=== PATIENT | female | born 1965 | race Caucasian/White ===

== ENCOUNTER 2018-08-04 23:29 | Inpatient (IN) ==
[2018-08-05] MEDS ORDERED: Sod Chloride 0.9% Inj 1,000 ML IV.SIG ONE ×2 (01:00→02:38)
--- NOTE | 2018-08-05 01:31 | XR ---
EXAM DATE: 08/05/2018 1:19 AM EST AGE/SEX: 52 years / Female INDICATIONS: Lower abdominal pain, free air. CLINICAL DATA: This is the patient's initial encounter. Patient reports that signs and symptoms have been present for 1 day and indicates a pain score of 5/10. MEDICAL/SURGICAL HISTORY: None. None. COMPARISON: No prior exams available for comparison. FINDINGS: A single AP view of the chest demonstrates the lungs to be symmetrically aerated without evidence of mass, infiltrate or effusion. The cardiomediastinal contours are unremarkable. Air below the left he midiaphragm is felt to be within the gastric fundus. Osseous structures are intact. CONCLUSION: The lungs are clear. Electronically signed by: Kentrell Breaux MD Board Certified Radiologist 08/05/2018 1:30 AM EST
[2018-08-05] MEDS ORDERED: Pantoprazole Inj 40 MG Vial IV.PUSH ONE (01:48)
[2018-08-05 01:51] LABS: Baso # (Auto) 0.1 th/mm3 (0.0-0.2); Baso % (Auto) 0.3 % (0.0-2.0); Eos % (Auto) 0.1 % (0.0-4.0); Hemoglobin 13.4 gm/dL (11.6-15.3); Lymph # (Auto) 0.4 th/mm3 (1.0-4.8); Lymph % (Auto) 2.7 % (9.0-44.0); Mean Corpuscular HGB Conc 32.8 % (32.0-36.0); Mean Corpuscular Hemoglobin 30.5 pg (27.0-34.0); Mean Platelet Volume 9.4 fL (7.0-11.0); Mono # (Auto) 0.9 th/mm3 (0.0-0.9); Mono % (Auto) 5.3 % (0.0-8.0); Neut # (Auto) 15.4 th/mm3 (1.8-7.7); Neut % (Auto) 91.6 % (16.0-70.0); Platelet Count 227 th/mm3 (150-450); Red Blood Count 4.41 mil/mm3 (4.00-5.30); Red Cell Distribution Width 12.4 % (11.6-17.2); White Blood Count 16.8 th/mm3 (4.0-11.0)
[2018-08-05 01:55] LABS: Alanine Aminotransferase 22 U/L (10-53); Anion Gap 9 meq/L (5-15); Aspartate Aminotransferase 23 U/L (15-37); Blood Urea Nitrogen 23 mg/dL (7-18); Calcium 9.5 mg/dL (8.5-10.1); Carbon Dioxide 23.9 meq/L (21.0-32.0); Chloride 105 meq/L (98-107); Glomerular Filtration Rate 80 mL/min (>89); Glucose,Random 146 mg/dL (74-106); Lipase 132 U/L (73-393); Magnesium 1.7 mg/dL (1.5-2.5); Potassium 3.8 meq/L (3.5-5.1); Sodium 138 meq/L (136-145)
[2018-08-05 01:58] LABS: Alkaline Phosphatase 99 U/L (45-117); Total Protein 7.3 g/dL (6.4-8.2)
[2018-08-05 02:00] LABS: Creatine Kinase 82 U/L (26-192)
[2018-08-05 02:04] LABS: Activated Partial Thrombo Time 20.8 sec (23.4-31.7); Prothrombin Time 10.3 sec (9.8-11.6)
[2018-08-05] MEDS ORDERED: Morphine Inj 4 MG/ML Vial IV.PUSH ONE (02:38)
[2018-08-05 02:47] LABS: Bilirubin,Urine Negative (Negative); Clarity,Urine Clear (Clear); Color,Urine Amber (Yellw/Straw); Glucose,Urine (UA) Negative (Negative); Hyaline Casts,Urine 3 /lpf (0-3); Leukocyte Esterase,Urine Small (Negative); Mucus,Urine Few /lpf (Occasional); Nitrite,Urine Negative (Negative); Specific Gravity,Urine 1.018 (1.002-1.035); Squamous Epithelial Cell,Urine <1 /hpf (0-5)
[2018-08-05 02:48] LABS: Urobilinogen,Urine 0.2 mg/dL (Less than 2)
--- NOTE | 2018-08-05 04:04 | CT ---
EXAM DATE: 08/05/2018 3:42 AM EST AGE/SEX: 52 years / Female INDICATIONS: Lower abdominal pain and vomiting. CLINICAL DATA: This is the patient's initial encounter. Patient reports that signs and symptoms have been present for 1 day and indicates a pain score of 8/10. MEDICAL/SURGICAL HISTORY: None. None. ORAL CONTRAST: No oral contrast ingested. RADIATION DOSE: 6.57 CTDI (mGy) COMPARISON: No prior exams available for comparison. TECHNIQUE: Multiple contiguous axial images were obtained through the abdomen and pelvis following b olus infusion of 85 ml Omnipaque 350 (iohexol) nonionic water-soluble contrast as a single exam dos e. No oral contrast ingested. Using automated exposure control and adjustment of the mA and/or kV ac cording to patient size, radiation dose was kept as low as reasonably achievable to obtain optimal di agnostic quality images. DICOM format image data is available electronically for review and comparis on. FINDINGS: Lower Lungs: The visualized lower lungs are clear. Liver: The liver has a homogeneous density without space-occupying lesion. There is no dilation of th e biliary tree. Spleen: Homogeneous density without enlargement. Pancreas: Unremarkable without mass or calcification. Kidneys: Normal in size and shape. No evidence of mass or hydronephrosis. Adrenal Glands: Unremarkable. Aorta: The aorta and proximal iliac vessels are grossly unremarkable without aneurysmal dilation. Bowel/Mesentery: Circumferential wall thickening and mild stranding of the adjacent fat involving th e colon. This extends from the mid transverse colon through the rectosigmoid colon. There is a small volume of free fluid deep within the pelvis. No dilated loops of bowel observed. No free air. Small b owel and stomach are unremarkable.. Abdominal Wall: Intact. Retroperitoneum: No evidence of adenopathy in the retrocrural, para-aortic, or deep pelvic regions. Bladder: Contours are smooth. Reproductive Organs: No abnormal masses or calcifications seen. Inguinal: The inguinal region is unremarkable without evidence of adenopathy. Bony Structures: Unremarkable. CONCLUSION: 1. Acute inflammatory process extending from the mid transverse colon to the rectosigmoid region. Sm all volume of free fluid. Consider ulcerative colitis. Although the pattern of distribution would be consistent with ischemic colitis the mesenteric vessels are widely patent. Electronically signed by: Kentrell Breaux MD Board Certified Radiologist 08/05/2018 4:02 AM EST
[2018-08-05] MEDS ORDERED: Ciprofloxacin 400 MG/200 ML 400 MG/200 ML PIGGYBACK IV.SIG ONE (04:13)
--- NOTE | 2018-08-05 05:45 | ED ---
HPI General Chief complaint: Abdominal Pain Stated complaint: Abd Pain/Vomitting Time Seen by Provider: 08/05/18 00:59 Source: patient Mode of arrival: ambulatory Limitations: no limitations History of Present Illness HPI narrative: The patient is a 52 year old female who presents to the [facility] emergency department with a history of nausea and abdominal cramping that began around 5 PM. She reports that she then developed nausea and vomiting x2 and diarrhea every 10-30 minutes. She reports that the diarrhea was initially dark brown and then became bloody with mucus. The patient reports that her last meal consisted of tonight. She denies any sick contacts or recent antibiotic use. She reports that in the evening she began to have fevers, chills, and lightheaded sensation. She denies ever having a colonoscopy. The patient reports that the abdominal pain is present in bilateral lower quadrants. She reports that the pain is constant and a cramping sensation with intermittent sharp jabbing pains. On review of systems otherwise, the patient denies having any cough, congestion, neck pain, chest pain, shortness of breath, urinary symptoms, or neurologic symptoms. Related Data Home Medications Medication Instructions Recorded Confirmed No Known Home Medications 08/05/18 08/05/18 Allergies Allergy/AdvReac Type Severity Reaction Status Date / Time No Known Allergies Allergy Verified 08/05/18 00:22 Review of Systems ROS: all other systems reviewed are negative [facility] Medical History Medical History Asthma (Acute) Bleeding disorder (Acute) delivery delivered (Acute) Factor 5 Leiden mutation, heterozygous (Acute) Herniated disc, cervical (Acute) Mitral valve prolapse (Acute) Psoriasis (Acute) Surgical History Surgical History History of facial surgery (Acute) Social History Social History Substance History: No History of Abuse Second Hand Smoke Exposure: No Smoking Status: Never smoker How Often Do You Have a Drink Containing Alcohol: Monthly or less Recent Travel in [facility] within the Last 8 Weeks: No Recent Out of Country Travel within the Last 8 Weeks: No Immunization History Tetanus Immunization: >5 Years Exam Const General: cooperative, well developed and acute distress (Related to lower abdominal pain.) mild HENMT Head: normocephalic and atraumatic Nose: no nasal discharge and no epistaxis Mouth: other (Tacky mucous membranes) Throat: posterior oropharynx normal and uvula midline Eyes Sclera: normal sclerae Pupils: PERRL Neck Neck: no meningeal signs, trachea midline and no JVD Resp Effort & Inspection: no use of accessory muscles Auscultation: clear to auscultation bilaterally Cardio Rate: regular rate Rhythm: regular rhythm Heart Sounds: no murmurs GI Inspection: non-distended Palpation: soft, no hepatosplenomegaly and tender in the epigastrum, in the LLQ , in the RLQ and suprapubicly; not in the LUQ, not in the RUQ, not at McBurney' s point, Thomas's sign negative and with no rebound tenderness Auscultation: normal bowel sounds Back/Spine/Pelvis Back: CVA tenderness (Reported on the left side.) Skin General: dry skin (warm) Neuro General: alert, awake, oriented x3 and other (Grossly nonfocal) Speech: speech normal Motor: no movement abnormalities noted Extrem General: normal to inspection (2+ pulses in all 4 extremities.), no calf tenderness, no clubbing, no cyanosis and no edema Psych Mood: congruent mood Affect: normal affect Judgment: judgment good Course Initial Documented Vital Signs Temperature 97.1 F L 08/05/18 00:22 Pulse Rate 76 08/05/18 00:22 Respiratory Rate 18 08/05/18 00:22 Blood Pressure 106/55 L 08/05/18 00:22 Pulse Oximetry 99 08/05/18 00:22 Last Documented Vital Signs Temperature 97.1 F L 08/05/18 00:22 Pulse Rate 70 08/05/18 01:00 Respiratory Rate 24 08/05/18 00:40 Blood Pressure 119/41 L 08/05/18 00:40 Pulse Oximetry 98 08/05/18 01:00 Medical Decision Making MDM Narrative Medical decision making narrative: During the course of the patient's emergency department visit, the patient's history, examination, and differential diagnosis were reviewed with the patient. The patient was placed on a electronic device monitor with oximetry and frequent blood pressure monitoring. The patient had IV access obtained and blood work sent for analysis. A diagnostic evaluation was started regarding the patient's nausea, vomiting, and bloody diarrhea. The patient was initially provided normal saline 1 L IV fluid bolus, morphine for pain, Zofran for nausea. The patient was started on Protonix 40 mg IV. Stool studies were ordered. The patient provided a stool sample that was grossly positive for blood and mucus. The patient's diagnostic studies are remarkable for a white count of 16.8, hemoglobin 13.4, platelets 227 with a neutrophil predominance of 91.6. PT 10.3 , PTT 20.8. Chemistries remarkable for BUN of 23, GFR of 80, glucose 146, lactic acid is within normal limits at 1.5, cardiac enzymes within normal limits , C-reactive protein less than 0.29, lipase 132. Urinalysis shows small occult blood small leukocyte esterase 9 WBCs 3 RBCs few mucus. C. difficile toxin is negative, chest x-ray shows no acute cardiopulmonary disease, CT scan of the abdomen and pelvis shows acute inflammatory process extending from the mid transverse colon to the rectosigmoid region, small volume of free fluid, consider ulcerative colitis. Although the pattern of distribution would be consistent with ischemic colitis, the mesenteric vessels are widely patent. The patient was started on ciprofloxacin and Flagyl IV. The patient's case including history, pertinent physical examination findings, and laboratory studies were discussed with Dr. Plascencia. It was agreed that the patient would be admitted to the [facility] hospitalist service. The patient's results were discussed with the patient, including the plan of care. I explained that further testing and/ or monitoring is indicated based on the patient's history, examination, and/ or laboratory findings. Therefore, I recommended admission for additional evaluation. The patient expressed understanding and was agreeable with this plan. The patient was admitted to the hospital in guarded condition and sent to a bed under the care of the [facility] hospitalist service. Medical Screen Exam Complete: Yes Emergency Medical Condition: Yes Differential Diagnosis Differential Diagnosis: Colitis, versus diverticulitis, versus AVM malformation , versus bacterial gastroenteritis, versus ischemic bowel Medical Records Medical records reviewed: Yes I reviewed the patient's medical records. Lab Data Lab results reviewed: Yes I reviewed the patient's lab results. Result diagrams: 08/05/18 01:15 08/05/18 01:15 POC Results POC Urine Results Negative Lab Results 08/05/18 08/05/18 08/05/18 Range/Units 01:15 01:15 01:15 WBC 16.8 H (4.0-11.0) th/mm3 RBC 4.41 (4.00-5.30) mil/mm3 Hgb 13.4 (11.6-15.3) gm/dL Hct 41.0 (35.0-46.0) % MCV 93.0 (80.0-100.0) fL MCH 30.5 (27.0-34.0) pg MCHC 32.8 (32.0-36.0) % RDW 12.4 (11.6-17.2) % Plt Count 227 (150-450) th/mm3 MPV 9.4 (7.0-11.0) fL Neut % (Auto) 91.6 H (16.0-70.0) % Lymph % (Auto) 2.7 L (9.0-44.0) % Stanton % (Auto) 5.3 (0.0-8.0) % Eos % (Auto) 0.1 (0.0-4.0) % Baso % (Auto) 0.3 (0.0-2.0) % Neut # (Auto) 15.4 H (1.8-7.7) th/mm3 Lymph # (Auto) 0.4 L (1.0-4.8) th/mm3 Stanton # (Auto) 0.9 (0.0-0.9) th/mm3 Eos # (Auto) 0.0 (0.0-0.4) th/mm3 Baso # (Auto) 0.1 (0.0-0.2) th/mm3 WBC Differential . Differential Comment Auto diff final PT 10.3 (9.8-11.6) sec INR 1.0 Ratio APTT 20.8 L (23.4-31.7) sec Sodium 138 (136-145) meq/L Potassium 3.8 (3.5-5.1) meq/L Chloride 105 (98-107) meq/L Carbon Dioxide 23.9 (21.0-32.0) meq/L Anion Gap 9 (5-15) meq/L BUN 23 H (7-18) mg/dL Creatinine 0.76 (0.50-1.00) mg/dL Estimated GFR 80 L (>89) mL/min Random Glucose 146 H (74-106) mg/dL Lactic Acid (0.4-2.0) mmol/L Calcium 9.5 (8.5-10.1) mg/dL Magnesium 1.7 (1.5-2.5) mg/dL Total Bilirubin 0.6 (0.2-1.0) mg/dL AST 23 (15-37) U/L ALT 22 (10-53) U/L Alkaline Phosphatase 99 (45-117) U/L Total Creatine Kinase 82 (26-192) U/L Troponin I Less than 0.02 L (0.02-0.05) ng/mL C-Reactive Protein Less than 0.29 (0.00-0.30) mg/dL Total Protein 7.3 (6.4-8.2) g/dL Albumin 4.0 (3.4-5.0) g/dL Lipase 132 (73-393) U/L Urine Color (Yellw/Straw) Urine Clarity (Clear) Urine pH (5.0-8.5) Ur Specific [place] (1.002-1.035) Urine Protein (Neg-Trace) mg/dL Urine Glucose (UA) (Negative) mg/dL Urine Ketones (Negative) mg/dL Urine Occult Blood (Negative) Urine Nitrate (Negative) Urine Bilirubin (Negative) Urine Urobilinogen (Less than 2) mg/dL Ur Leukocyte Esterase (Negative) Urine RBC (0-3) /hpf Urine WBC (0-5) /hpf Ur Squamous Epith Cells (0-5) /hpf Hyaline Casts (0-3) /lpf Urine Mucus (Occasional) /lpf Micro UA Comment Ur Microscopic Review Urine Culture Comments Stl C.difficile DNA Amp (Negative) St C. diff Tox Epid 027 (Negative) Blood Type Blood Type Recheck Antibody Screen 08/05/18 08/05/18 08/05/18 Range/Units 01:25 02:15 02:25 WBC (4.0-11.0) th/mm3 RBC (4.00-5.30) mil/mm3 Hgb (11.6-15.3) gm/dL Hct (35.0-46.0) % MCV (80.0-100.0) fL MCH (27.0-34.0) pg MCHC (32.0-36.0) % RDW (11.6-17.2) % Plt Count (150-450) th/mm3 MPV (7.0-11.0) fL Neut % (Auto) (16.0-70.0) % Lymph % (Auto) (9.0-44.0) % Stanton % (Auto) (0.0-8.0) % Eos % (Auto) (0.0-4.0) % Baso % (Auto) (0.0-2.0) % Neut # (Auto) (1.8-7.7) th/mm3 Lymph # (Auto) (1.0-4.8) th/mm3 Stanton # (Auto) (0.0-0.9) th/mm3 Eos # (Auto) (0.0-0.4) th/mm3 Baso # (Auto) (0.0-0.2) th/mm3 WBC Differential Differential Comment PT (9.8-11.6) sec INR Ratio APTT (23.4-31.7) sec Sodium (136-145) meq/L Potassium (3.5-5.1) meq/L Chloride (98-107) meq/L Carbon Dioxide (21.0-32.0) meq/L Anion Gap (5-15) meq/L BUN (7-18) mg/dL Creatinine (0.50-1.00) mg/dL Estimated GFR (>89) mL/min Random Glucose (74-106) mg/dL Lactic Acid 1.5 (0.4-2.0) mmol/L Calcium (8.5-10.1) mg/dL Magnesium (1.5-2.5) mg/dL Total Bilirubin (0.2-1.0) mg/dL AST (15-37) U/L ALT (10-53) U/L Alkaline Phosphatase (45-117) U/L Total Creatine Kinase (26-192) U/L Troponin I (0.02-0.05) ng/mL C-Reactive Protein (0.00-0.30) mg/dL Total Protein (6.4-8.2) g/dL Albumin (3.4-5.0) g/dL Lipase (73-393) U/L Urine Color [place] (Yellw/Straw) Urine Clarity Clear (Clear) Urine pH 5.0 (5.0-8.5) Ur Specific [place] 1.018 (1.002-1.035) Urine Protein Negative (Neg-Trace) mg/dL Urine Glucose (UA) Negative (Negative) mg/dL Urine Ketones 20 (Negative) mg/dL Urine Occult Blood Small H (Negative) Urine Nitrate Negative (Negative) Urine Bilirubin Negative (Negative) Urine Urobilinogen 0.2 (Less than 2) mg/dL Ur Leukocyte Esterase Small H (Negative) Urine RBC 3 (0-3) /hpf Urine WBC 9 H (0-5) /hpf Ur Squamous Epith Cells <1 (0-5) /hpf Hyaline Casts 3 (0-3) /lpf Urine Mucus Few H (Occasional) /lpf Micro UA Comment Culture indicated Ur Microscopic Review Not Reportable Urine Culture Comments Culture indicated Stl C.difficile DNA Amp (Negative) St C. diff Tox Epid 027 (Negative) Blood Type B Positive Blood Type Recheck Required Antibody Screen Negative 08/05/18 Range/Units 03:30 WBC (4.0-11.0) th/mm3 RBC (4.00-5.30) mil/mm3 Hgb (11.6-15.3) gm/dL Hct (35.0-46.0) % MCV (80.0-100.0) fL MCH (27.0-34.0) pg MCHC (32.0-36.0) % RDW (11.6-17.2) % Plt Count (150-450) th/mm3 MPV (7.0-11.0) fL Neut % (Auto) (16.0-70.0) % Lymph % (Auto) (9.0-44.0) % Stanton % (Auto) (0.0-8.0) % Eos % (Auto) (0.0-4.0) % Baso % (Auto) (0.0-2.0) % Neut # (Auto) (1.8-7.7) th/mm3 Lymph # (Auto) (1.0-4.8) th/mm3 Stanton # (Auto) (0.0-0.9) th/mm3 Eos # (Auto) (0.0-0.4) th/mm3 Baso # (Auto) (0.0-0.2) th/mm3 WBC Differential Differential Comment PT (9.8-11.6) sec INR Ratio APTT (23.4-31.7) sec Sodium (136-145) meq/L Potassium (3.5-5.1) meq/L Chloride (98-107) meq/L Carbon Dioxide (21.0-32.0) meq/L Anion Gap (5-15) meq/L BUN (7-18) mg/dL Creatinine (0.50-1.00) mg/dL Estimated GFR (>89) mL/min Random Glucose (74-106) mg/dL Lactic Acid (0.4-2.0) mmol/L Calcium (8.5-10.1) mg/dL Magnesium (1.5-2.5) mg/dL Total Bilirubin (0.2-1.0) mg/dL AST (15-37) U/L ALT (10-53) U/L Alkaline Phosphatase (45-117) U/L Total Creatine Kinase (26-192) U/L Troponin I (0.02-0.05) ng/mL C-Reactive Protein (0.00-0.30) mg/dL Total Protein (6.4-8.2) g/dL Albumin (3.4-5.0) g/dL Lipase (73-393) U/L Urine Color (Yellw/Straw) Urine Clarity (Clear) Urine pH (5.0-8.5) Ur Specific [place] (1.002-1.035) Urine Protein (Neg-Trace) mg/dL Urine Glucose (UA) (Negative) mg/dL Urine Ketones (Negative) mg/dL Urine Occult Blood (Negative) Urine Nitrate (Negative) Urine Bilirubin (Negative) Urine Urobilinogen (Less than 2) mg/dL Ur Leukocyte Esterase (Negative) Urine RBC (0-3) /hpf Urine WBC (0-5) /hpf Ur Squamous Epith Cells (0-5) /hpf Hyaline Casts (0-3) /lpf Urine Mucus (Occasional) /lpf Micro UA Comment Ur Microscopic Review Urine Culture Comments Stl C.difficile DNA Amp No result (Negative) St C. diff Tox Epid 027 Negative (Negative) Blood Type Blood Type Recheck Antibody Screen Imaging Data Radiologist's impression: Chest X-Ray 08/05/18 01:00 CONCLUSION: The lungs are clear. Abdomen/Pelvis CT 08/05/18 02:39 CONCLUSION: 1. Acute inflammatory process extending from the mid transverse colon to the rectosigmoid region. Small volume of free fluid. Consider ulcerative colitis. Although the pattern of distribution would be consistent with ischemic colitis the mesenteric vessels are widely patent. Discharge Plan Discharge Disposition Patient Disposition: ED Admit(ED Internal Use Only) Discharge Order Discharge Orders: ED Use Only Admit Order (Routine); Ordered 08/05/18 Ordered By: Dagmar Stearns Discharge Details Diagnosis: Colitis Physicians Team ED Provider: Dagmar Stearns Primary Care Provider: UNKNOWN, Attending Provider: Ibrahima Menchaca Discharge Interventions Interventions: Vital Signs Last Done: 08/05/18 00:40 Status ED Status: Admitted Patient
[2018-08-05] MEDS: Sod Chloride 0.9% Inj 1,000 ML IV.CONT SCH ×4 (06:25→21:10)
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
[2018-08-05 10:49] LABS: Hematocrit 33.3 % (35.0-46.0); Hemoglobin 11.2 gm/dL (11.6-15.3)
--- NOTE | 2018-08-05 11:30 | P.CONGI ---
History of Present Illness Consult date: 08/05/18 Consult reason: Colitis Chief complaint: Colitis History of Present Illness: This patient is a 52-year-old female with past medical history significant for asthma, bleeding disorder, factor V Leyden mutation, herniated disc, mitral valve prolapse and psoriasis. Surgical history significant for section. Patient presented to [facility] emergency department with report of nausea and abdominal cramping onset yesterday at 5 PM. Patient endorses that she has had nausea and vomiting with loose stools. Upon consultation, patient endorsed that stools were initially dark brown in color and then became bloody with some mucus. Patient describes her abdominal pain as constant and cramping. She also describes it as aching sharp and shooting. At this time she rates pain at 5 out of 10. Patient unsure if she had fever but does endorse chills and sweats. She describes emesis as undigested food. States last colonoscopy done in 2001 into her recollection there were no abnormal findings. Patient denies any use of tobacco or alcohol products and denies any family history of gastrointestinal disorders. CT on admission revealed inflammation from mid transverse colon to rectosigmoid portion. Our service has been consulted to evaluate patient for colitis. <Katie Vivas - Last Filed: 08/05/18 11:19> Review of Systems All other systems reviewed negative except as stated in HPI <Katie Vivas - Last Filed: 08/05/18 11:19> PMFSH - History History Provided By: Patient - Medical History Medical History: Medical History (Last Updated 08/05/18 @ 05:41 by Dagmar Stearns MD) Asthma Bleeding disorder delivery delivered Factor 5 Leiden mutation, heterozygous Herniated disc, cervical Mitral valve prolapse Psoriasis - Surgical History Surgical History: Surgical History (Last Updated 08/05/18 @ 00:26 by Cecile Hernandez) History of facial surgery - Tobacco History Second Hand Smoke Exposure: No Smoking Status: Never smoker - Alcohol History How Often Do You Have a Drink Containing Alcohol: Monthly or less - Substance Use History Substance History: No History of Abuse - Travel History Recent Travel in the [place] Within the Last 8 Weeks: No Recent Travel Out of the Country Within the Last 8 Weeks: No - Immunization History Tetanus Immunization: >5 Years <Katie Vivas - Last Filed: 08/05/18 11:19> - Medical History Medical History: Medical History (Last Updated 08/05/18 @ 05:41 by Dagmar Stearns MD) Asthma Bleeding disorder delivery delivered Factor 5 Leiden mutation, heterozygous Herniated disc, cervical Mitral valve prolapse Psoriasis - Surgical History Surgical History: Surgical History (Last Updated 08/05/18 @ 00:26 by Cecile Hernandez) History of facial surgery <Estuardo Pedroza - Last Filed: 08/05/18 14:04> Medications and Allergies Active Medications: Active Medications Acetaminophen (Tylenol) 650 mg PO Q4H PRN PRN Reason: Temp > 100.4 Al Hydroxide/Mg Hydroxide (Milk Of Magnesia Liq) 30 ml PO Q12H PRN PRN Reason: Mild Constipation Sodium Chloride (Ns Inj) 1,000 mls @ 125 mls/hr IV.CONT .Q8H VAISHALI Last Admin: 08/05/18 06:25 Dose: 125 mls/hr Ciprofloxacin/Dextrose (Cipro 400 Mg/200 Ml Inj) 400 mg in 200 mls @ 200 mls/ hr IV.SIG Q12H VAISHALI Metronidazole/Sodium Chloride (Flagyl 500 Mg Inj) 100 mls @ 100 mls/hr IV.SIG Q8H VAISHALI Ondansetron HCl (Zofran Inj) 4 mg IV.PUSH Q6H PRN PRN Reason: NAUSEA OR VOMITING Sodium Chloride (Ns Flush) 2 ml IV.FLUSH BID [facility] Last Admin: 08/05/18 08:27 Dose: Not Given Sodium Chloride (Ns Flush) 2 ml IV.FLUSH UNSCH PRN PRN Reason: FLUSH AFTER USING IV ACCESS <Katie Vivas - Last Filed: 08/05/18 11:19> Active Medications: Active Medications Acetaminophen (Tylenol) 650 mg PO Q4H PRN PRN Reason: Temp > 100.4 Al Hydroxide/Mg Hydroxide (Milk Of Magnesia Liq) 30 ml PO Q12H PRN PRN Reason: Mild Constipation Sodium Chloride (Ns Inj) 1,000 mls @ 125 mls/hr IV.CONT .Q8H VAISHALI Last Admin: 08/05/18 13:36 Dose: Not Given Ciprofloxacin/Dextrose (Cipro 400 Mg/200 Ml Inj) 400 mg in 200 mls @ 200 mls/ hr IV.SIG Q12H VAISHALI Metronidazole/Sodium Chloride (Flagyl 500 Mg Inj) 100 mls @ 100 mls/hr IV.SIG Q8H [facility] Last Infusion: 08/05/18 13:37 Dose: Infused Ondansetron HCl (Zofran Inj) 4 mg IV.PUSH Q6H PRN PRN Reason: NAUSEA OR VOMITING Sodium Chloride (Ns Flush) 2 ml IV.FLUSH BID [facility] Last Admin: 08/05/18 08:27 Dose: Not Given Sodium Chloride (Ns Flush) 2 ml IV.FLUSH UNSCH PRN PRN Reason: FLUSH AFTER USING IV ACCESS <Estuardo Pedroza - Last Filed: 08/05/18 14:04> Allergies Allergy/AdvReac Type Severity Reaction Status Date / Time No Known Allergies Allergy Verified 08/05/18 00:22 Home Medications Medication Instructions Recorded Confirmed Type No Known Home Medications 08/05/18 08/05/18 History Exam Vital signs: Vital Signs 08/05/18 00:22 08/05/18 00:40 08/05/18 01:00 Temperature 97.1 F L Pulse Rate 76 72 70 Respiratory Rate 18 24 Blood Pressure 106/55 L 119/41 L Pulse Oximetry 99 98 98 08/05/18 04:27 08/05/18 07:05 08/05/18 07:44 Temperature 97.8 F Pulse Rate 73 77 78 Respiratory Rate 16 Blood Pressure 126/67 118/65 Pulse Oximetry 97 98 99 08/05/18 09:26 Temperature 97.8 F Pulse Rate 76 Respiratory Rate 16 Blood Pressure 120/76 Pulse Oximetry 99 Intake & Output 08/04/18 08/05/18 08/05/18 18:59 06:59 18:59 Intake Total 2099 1000 / 1000 Output Total 400 / 400 Balance 2099 600 / 600 Weight 58.967 kg Intake: IV 2099 200 / 200 Cipro 400 MG/200 ML Inj 400 mg 200 / 200 In 200 ml @ 200 mls/hr IV.SIG ONCE ONE Rx#:[id number] NS Inj 1,000 ML @ Wide Open IV. 1999 SIG BOLUS ONE Rx#:[id number] Flagyl 500 MG Inj 100 ML @ 100 100 / 100 mls/hr IV.SIG ONCE ONE Rx#: [id number] Oral 800 / 800 Output: Urine 400 / 400 Other: # Voids 1 - Constitutional no acute distress, cooperative - Routine HEENT Exam Head: Present: normocephalic - Routine Respiratory Exam Present: CTA bilaterally. Absent: accessory muscle use - Routine Cardiovascular Exam Present: RRR, S1, S2 - Routine Abdominal Exam Present: soft, normoactive bowel sounds, tenderness. Absent: distended, guarding, firm - Routine Extremities Exam Present: pulses intact. Absent: edema - Routine Skin Exam Present: dry, warm. Absent: pallor - Routine Neurological Exam Present: alert, oriented X3 <Vivas,Katie - Last Filed: 08/05/18 11:19> Vital signs: Vital Signs 08/05/18 00:22 08/05/18 00:40 08/05/18 01:00 Temperature 97.1 F L Pulse Rate 76 72 70 Respiratory Rate 18 24 Blood Pressure 106/55 L 119/41 L Pulse Oximetry 99 98 98 08/05/18 04:27 08/05/18 07:05 08/05/18 07:44 Temperature 97.8 F Pulse Rate 73 77 78 Respiratory Rate 16 Blood Pressure 126/67 118/65 Pulse Oximetry 97 98 99 08/05/18 09:26 08/05/18 11:00 08/05/18 11:53 Temperature 97.8 F 98 F 98 F Pulse Rate 76 84 85 Respiratory Rate 16 16 16 Blood Pressure 120/76 114/68 118/76 Pulse Oximetry 99 99 99 Intake & Output 08/04/18 08/05/18 08/05/18 18:59 06:59 18:59 Intake Total 2099 / 2099 Output Total 400 / 400 Balance 2099 1700 / 1700 Weight 58.967 kg Intake: IV 2099 1300 / 1300 NS Inj 1,000 ML @ 125 mls/hr IV 1000 / 1000 .CONT .Q8H VAISHALI Rx#:[id number] Cipro 400 MG/200 ML Inj 400 mg 200 / 200 In 200 ml @ 200 mls/hr IV.SIG ONCE ONE Rx#:[id number] NS Inj 1,000 ML @ Wide Open IV. 1999 SIG BOLUS ONE Rx#:[id number] Flagyl 500 MG Inj 100 ML @ 100 100 / 100 100 / 100 mls/hr IV.SIG Q8H VAISHALI Rx#: [id number] Oral 800 / 800 Output: Urine 400 / 400 Other: # Voids 1 <Estuardo Pedroza A - Last Filed: 08/05/18 14:04> Results - Labs CBC & Chem 7: 08/05/18 10:28 08/05/18 01:15 Labs: Laboratory Results - last 24 hr 08/05/18 08/05/18 08/05/18 01:15 01:15 01:15 WBC 16.8 H RBC 4.41 Hgb 13.4 Hct 41.0 MCV 93.0 MCH 30.5 MCHC 32.8 RDW 12.4 Plt Count 227 MPV 9.4 Neut % (Auto) 91.6 H Lymph % (Auto) 2.7 L [place] % (Auto) 5.3 Eos % (Auto) 0.1 Baso % (Auto) 0.3 Neut # (Auto) 15.4 H Lymph # (Auto) 0.4 L [place] # (Auto) 0.9 Eos # (Auto) 0.0 Baso # (Auto) 0.1 WBC Differential . Differential Comment Auto diff final PT 10.3 INR 1.0 APTT 20.8 L Sodium 138 Potassium 3.8 Chloride 105 Carbon Dioxide 23.9 Anion Gap 9 BUN 23 H Creatinine 0.76 Estimated GFR 80 L Random Glucose 146 H Lactic Acid Calcium 9.5 Magnesium 1.7 Total Bilirubin 0.6 AST 23 ALT 22 Alkaline Phosphatase 99 Total Creatine Kinase 82 Troponin I Less than 0.02 L C-Reactive Protein Less than 0.29 Total Protein 7.3 Albumin 4.0 Lipase 132 Urine Color Urine Clarity Urine pH Ur Specific [place] Urine Protein Urine Glucose (UA) Urine Ketones Urine Occult Blood Urine Nitrate Urine Bilirubin Urine Urobilinogen Ur Leukocyte Esterase Urine RBC Urine WBC Ur Squamous Epith Cells Hyaline Casts Urine Mucus Micro UA Comment Ur Microscopic Review Urine Culture Comments Stl C.difficile DNA Amp St C. diff Tox Epid 027 Blood Type Blood Type Recheck Antibody Screen 08/05/18 08/05/18 08/05/18 01:25 02:15 02:25 WBC RBC Hgb Hct MCV MCH MCHC RDW Plt Count MPV Neut % (Auto) Lymph % (Auto) [place] % (Auto) Eos % (Auto) Baso % (Auto) Neut # (Auto) Lymph # (Auto) [place] # (Auto) Eos # (Auto) Baso # (Auto) WBC Differential Differential Comment PT INR APTT Sodium Potassium Chloride Carbon Dioxide Anion Gap BUN Creatinine Estimated GFR Random Glucose Lactic Acid 1.5 Calcium Magnesium Total Bilirubin AST ALT Alkaline Phosphatase Total Creatine Kinase Troponin I C-Reactive Protein Total Protein Albumin Lipase Urine Color [place] Urine Clarity Clear Urine pH 5.0 Ur Specific [place] 1.018 Urine Protein Negative Urine Glucose (UA) Negative Urine Ketones 20 Urine Occult Blood Small H Urine Nitrate Negative Urine Bilirubin Negative Urine Urobilinogen 0.2 Ur Leukocyte Esterase Small H Urine RBC 3 Urine WBC 9 H Ur Squamous Epith Cells <1 Hyaline Casts 3 Urine Mucus Few H Micro UA Comment Culture indicated Ur Microscopic Review Not Reportable Urine Culture Comments Culture indicated Stl C.difficile DNA Amp St C. diff Tox Epid 027 Blood Type B Positive Blood Type Recheck Required Antibody Screen Negative 08/05/18 08/05/18 03:30 10:28 WBC RBC Hgb 11.2 L D Hct 33.3 L MCV MCH MCHC RDW Plt Count MPV Neut % (Auto) Lymph % (Auto) [place] % (Auto) Eos % (Auto) Baso % (Auto) Neut # (Auto) Lymph # (Auto) [place] # (Auto) Eos # (Auto) Baso # (Auto) WBC Differential Differential Comment PT INR APTT Sodium Potassium Chloride Carbon Dioxide Anion Gap BUN Creatinine Estimated GFR Random Glucose Lactic Acid Calcium Magnesium Total Bilirubin AST ALT Alkaline Phosphatase Total Creatine Kinase Troponin I C-Reactive Protein Total Protein Albumin Lipase Urine Color Urine Clarity Urine pH Ur Specific [place] Urine Protein Urine Glucose (UA) Urine Ketones Urine Occult Blood Urine Nitrate Urine Bilirubin Urine Urobilinogen Ur Leukocyte Esterase Urine RBC Urine WBC Ur Squamous Epith Cells Hyaline Casts Urine Mucus Micro UA Comment Ur Microscopic Review Urine Culture Comments Stl C.difficile DNA Amp No result St C. diff Tox Epid 027 Negative Blood Type Blood Type Recheck Antibody Screen - Imaging Impressions Chest X-Ray 08/05/18 01:00 CONCLUSION: The lungs are clear. Abdomen/Pelvis CT 08/05/18 02:39 CONCLUSION: 1. Acute inflammatory process extending from the mid transverse colon to the rectosigmoid region. Small volume of free fluid. Consider ulcerative colitis. Although the pattern of distribution would be consistent with ischemic colitis the mesenteric vessels are widely patent. <Katie Vivas - Last Filed: 08/05/18 11:19> - Labs CBC & Chem 7: 08/05/18 10:28 08/05/18 01:15 Labs: Laboratory Results - last 24 hr 0108/05/18 08/05/18 01:15 01:15 01:15 WBC 16.8 H RBC 4.41 Hgb 13.4 Hct 41.0 MCV 93.0 MCH 30.5 MCHC 32.8 RDW 12.4 Plt Count 227 MPV 9.4 Neut % (Auto) 91.6 H Lymph % (Auto) 2.7 L [place] % (Auto) 5.3 Eos % (Auto) 0.1 Baso % (Auto) 0.3 Neut # (Auto) 15.4 H Lymph # (Auto) 0.4 L [place] # (Auto) 0.9 Eos # (Auto) 0.0 Baso # (Auto) 0.1 WBC Differential . Differential Comment Auto diff final PT 10.3 INR 1.0 APTT 20.8 L Sodium 138 Potassium 3.8 Chloride 105 Carbon Dioxide 23.9 Anion Gap 9 BUN 23 H Creatinine 0.76 Estimated GFR 80 L Random Glucose 146 H Lactic Acid Calcium 9.5 Magnesium 1.7 Total Bilirubin 0.6 AST 23 ALT 22 Alkaline Phosphatase 99 Total Creatine Kinase 82 Troponin I Less than 0.02 L C-Reactive Protein Less than 0.29 Total Protein 7.3 Albumin 4.0 Lipase 132 Urine Color Urine Clarity Urine pH Ur Specific [place] Urine Protein Urine Glucose (UA) Urine Ketones Urine Occult Blood Urine Nitrate Urine Bilirubin Urine Urobilinogen Ur Leukocyte Esterase Urine RBC Urine WBC Ur Squamous Epith Cells Hyaline Casts Urine Mucus Micro UA Comment Ur Microscopic Review Urine Culture Comments Stl C.difficile DNA Amp St C. diff Tox Epid 027 Blood Type Blood Type Recheck Antibody Screen 08/05/18 08/05/18 08/05/18 01:25 02:15 02:25 WBC RBC Hgb Hct MCV MCH MCHC RDW Plt Count MPV Neut % (Auto) Lymph % (Auto) [place] % (Auto) Eos % (Auto) Baso % (Auto) Neut # (Auto) Lymph # (Auto) [place] # (Auto) Eos # (Auto) Baso # (Auto) WBC Differential Differential Comment PT INR APTT Sodium Potassium Chloride Carbon Dioxide Anion Gap BUN Creatinine Estimated GFR Random Glucose Lactic Acid 1.5 Calcium Magnesium Total Bilirubin AST ALT Alkaline Phosphatase Total Creatine Kinase Troponin I C-Reactive Protein Total Protein Albumin Lipase Urine Color [place] Urine Clarity Clear Urine pH 5.0 Ur Specific [place] 1.018 Urine Protein Negative Urine Glucose (UA) Negative Urine Ketones 20 Urine Occult Blood Small H Urine Nitrate Negative Urine Bilirubin Negative Urine Urobilinogen 0.2 Ur Leukocyte Esterase Small H Urine RBC 3 Urine WBC 9 H Ur Squamous Epith Cells <1 Hyaline Casts 3 Urine Mucus Few H Micro UA Comment Culture indicated Ur Microscopic Review Not Reportable Urine Culture Comments Culture indicated Stl C.difficile DNA Amp St C. diff Tox Epid 027 Blood Type B Positive Blood Type Recheck Required Antibody Screen Negative 08/05/18 08/05/18 03:30 10:28 WBC RBC Hgb 11.2 L D Hct 33.3 L MCV MCH MCHC RDW Plt Count MPV Neut % (Auto) Lymph % (Auto) [place] % (Auto) Eos % (Auto) Baso % (Auto) Neut # (Auto) Lymph # (Auto) [place] # (Auto) Eos # (Auto) Baso # (Auto) WBC Differential Differential Comment PT INR APTT Sodium Potassium Chloride Carbon Dioxide Anion Gap BUN Creatinine Estimated GFR Random Glucose Lactic Acid Calcium Magnesium Total Bilirubin AST ALT Alkaline Phosphatase Total Creatine Kinase Troponin I C-Reactive Protein Total Protein Albumin Lipase Urine Color Urine Clarity Urine pH Ur Specific [place] Urine Protein Urine Glucose (UA) Urine Ketones Urine Occult Blood Urine Nitrate Urine Bilirubin Urine Urobilinogen Ur Leukocyte Esterase Urine RBC Urine WBC Ur Squamous Epith Cells Hyaline Casts Urine Mucus Micro UA Comment Ur Microscopic Review Urine Culture Comments Stl C.difficile DNA Amp No result St C. diff Tox Epid 027 Negative Blood Type Blood Type Recheck Antibody Screen - Imaging Impressions Chest X-Ray 08/05/18 01:00 CONCLUSION: The lungs are clear. Abdomen/Pelvis CT 08/05/18 02:39 CONCLUSION: 1. Acute inflammatory process extending from the mid transverse colon to the rectosigmoid region. Small volume of free fluid. Consider ulcerative colitis. Although the pattern of distribution would be consistent with ischemic colitis the mesenteric vessels are widely patent. <Estuardo Pedroza - Last Filed: 08/05/18 14:04> Assessment and Plan (1) Colitis Status: Acute Code(s): K52.9 - Noninfective gastroenteritis and colitis, unspecified - Plan This patient is a 52-year-old female with past medical history significant for asthma, bleeding disorder, factor V Leyden mutation, herniated disc, mitral valve prolapse and psoriasis. Surgical history significant for section. Patient presented to [facility] [place] emergency department with report of nausea and abdominal cramping onset yesterday at 5 PM. Patient endorses that she has had nausea and vomiting with loose stools. Upon consultation, patient endorsed that stools were initially dark brown in color and then became bloody with some mucus. Patient describes her abdominal pain as constant and cramping. She also describes it as aching sharp and shooting. At this time she rates pain at 5 out of 10. Patient unsure if she had fever but does endorse chills and sweats. She describes emesis as undigested food. States last colonoscopy done in 2001 into her recollection there were no abnormal findings. Patient denies any use of tobacco or alcohol products and denies any family history of gastrointestinal disorders. CT on admission revealed inflammation from mid transverse colon to rectosigmoid portion. Our service has been consulted to evaluate patient for colitis. Colitis-likely infectious Patient endorses 1 day history of nausea with some vomiting and abdominal cramping. Patient states stools were initially dark and then became mucoid and bloody. Patient states pain was constant but is now intermittent. There are no known alleviating or aggravating factors. Unknown if patient had fever but she does endorse chills and sweats. 08/05/2018 CT abdomen and pelvis reveal the following--. Acute inflammatory process extending from the mid transverse colon to the rectosigmoid region. Small volume of free fluid. Consider ulcerative colitis. Although the pattern of distribution would be consistent with ischemic colitis the mesenteric vessels are widely patent. 08/05/2018 WBC 16.8 hemoglobin 13.4 hematocrit 41 Hemoglobin 11.2 hematocrit 33.3, LFTs within normal limits, C-reactive protein 0.29, lipase 132, lactic acid 1.5 Plan -Clear liquid diet -Monitor labs -Stool studies-pending -Cipro 400 mg IV every 12 hours -Flagyl 500 mg IV every 8 hours -Antiemetics and analgesics as per attending -Continue IV hydration -Supportive care -Further recommendations to follow -Patient will likely require endoscopic procedure 6-8 weeks following resolution This patient has been seen by myself and Dr. Pedroza and this note is written on his behalf - Attending Attestation Dr. Pedroza <Katie Vivas - Last Filed: 08/05/18 11:19> (1) Colitis Status: Acute Code(s): K52.9 - Noninfective gastroenteritis and colitis, unspecified - Attending Attestation Agree with above assessment and plan. Empirical treatment with antibiotics and hydration. Check Fecal Calprotectin. Will follow up with you, Thank you for the consult. <Estuardo Pedroza - Last Filed: 08/05/18 14:04>
[2018-08-05] MEDS: Morphine Inj 4 MG/ML Vial IV.PUSH PRN ×2 (17:07→23:19)
[2018-08-05] MEDS: Ciprofloxacin 400 MG/200 ML 400 MG/200 ML PIGGYBACK IV.SIG SCH (17:08)
[2018-08-05 17:14] LABS: Hematocrit 31.8 % (35.0-46.0); Hemoglobin 11.1 gm/dL (11.6-15.3)
[2018-08-05] MEDS: Acetaminophen 325 MG Tablet PO PRN (21:09)
[2018-08-06] MEDS: Sod Chloride 0.9% Inj 1,000 ML IV.CONT SCH (05:38)
[2018-08-06] MEDS: Acetaminophen 325 MG Tablet PO PRN (05:39)
[2018-08-06] MEDS: Morphine Inj 4 MG/ML Vial IV.PUSH PRN ×3 (05:45→21:46)
[2018-08-06] MEDS: Ciprofloxacin 400 MG/200 ML 400 MG/200 ML PIGGYBACK IV.SIG SCH ×2 (06:46→17:02)
[2018-08-06 08:09] LABS: Baso % (Auto) 0.3 % (0.0-2.0); Eos % (Auto) 0.4 % (0.0-4.0); Hematocrit 31.2 % (35.0-46.0); Hemoglobin 10.5 gm/dL (11.6-15.3); Lymph # (Auto) 0.5 th/mm3 (1.0-4.8); Lymph % (Auto) 4.9 % (9.0-44.0); Mean Corpuscular HGB Conc 33.7 % (32.0-36.0); Mean Corpuscular Hemoglobin 30.9 pg (27.0-34.0); Mean Corpuscular Volume 91.7 fL (80.0-100.0); Mean Platelet Volume 9.7 fL (7.0-11.0); Mono # (Auto) 1.1 th/mm3 (0.0-0.9); Mono % (Auto) 10.8 % (0.0-8.0); Neut # (Auto) 8.8 th/mm3 (1.8-7.7); Neut % (Auto) 83.6 % (16.0-70.0); Platelet Count 142 th/mm3 (150-450); Red Cell Distribution Width 12.2 % (11.6-17.2); White Blood Count 10.5 th/mm3 (4.0-11.0)
[2018-08-06 08:48] LABS: Alanine Aminotransferase 12 U/L (10-53); Albumin 2.6 g/dL (3.4-5.0); Alkaline Phosphatase 67 U/L (45-117); Anion Gap 9 meq/L (5-15); Aspartate Aminotransferase 17 U/L (15-37); Blood Urea Nitrogen 7 mg/dL (7-18); Carbon Dioxide 22.2 meq/L (21.0-32.0); Chloride 105 meq/L (98-107); Glomerular Filtration Rate Greater Than 89 mL/min (>89); Glucose,Random 137 mg/dL (74-106); Sodium 136 meq/L (136-145); Total Protein 5.1 g/dL (6.4-8.2)
[2018-08-06 09:00] LABS: Potassium 2.8 meq/L (3.5-5.1)
[2018-08-06] MEDS ORDERED: Potassium Chloride 25 MEQ Effervescent Tablet PO ONE (09:52)
--- NOTE | 2018-08-06 09:57 | P.PNIM ---
Subjective Interval history: still with some lower abdomen cramps and bloody diarrhea leighton liquid Physical Exam Vital signs: Last Vital Signs Temp 98.0 F 08/06/18 08:00 Pulse 80 08/06/18 08:00 Resp 16 08/06/18 08:00 BP 112/66 08/06/18 08:00 Pulse Ox 95 08/06/18 08:00 Narrative: GENERAL: This is a thin, well-developed patient, ill appearing CARDIOVASCULAR: Regular rate and rhythm RESPIRATORY: Clear to auscultation. Breath sounds equal bilaterally. GASTROINTESTINAL: Abdomen soft, tender left side abdomen, nondistended. hyperactive bowel sounds MUSCULOSKELETAL: Extremities without clubbing, cyanosis, or edema. NEURO: Alert & Oriented x4 to person, place, time, situation. Moves all ext x4 Results Labs CBC & Chem 7: 08/06/18 06:57 08/06/18 06:57 Assessment and Plan Assessment (1) Colitis: Code(s): K52.9 - Noninfective gastroenteritis and colitis, unspecified Status: Acute Plan The patient is a 52 year old female with a past medical history whish includes asthma, Factor 5 Leiden mutation, herniated cervical disc( takes ibuprofen daily for the pain), mitral valve prolapse and Psoriasis who presents to the [facility] emergency department due to nausea and abdominal cramping that began around 5 PM 08/04/18. She reports that she then developed nausea and vomiting x2 as well as having diarrhea every 10-30 minutes. She reports that the diarrhea was initially dark brown and then became bloody with mucus. The patient reports that her last meal was lunch and consisted of a tuna sandwich. She denies any sick contacts or recent antibiotic use. She reports that in the evening she began to have fevers, chills, and lightheaded sensation. She denies ever having a colonoscopy. The patient reports that the abdominal pain is present worse on th LLQ with radiation to the right side. She reports that the pain is constant and a cramping sensation with intermittent sharp jabbing pains. The patient denies having any cough, congestion, chest pain, shortness of breath or urinary symptoms. Colitis, infectious vs inflammatory bowel disease Abdomen/Pelvis CT 08/05/18 1. Acute inflammatory process extending from the mid transverse colon to the rectosigmoid region. Small volume of free fluid. Consider ulcerative colitis. Although the pattern of distribution would be consistent with ischemic colitis the mesenteric vessels are widely patent. Stool for C diff, WBCs and Enteric pathogens negative. WBC 16.8 on admission. Continue Cipro IV BID and Flagyl 500mg IV TID Clear liquid diet Consulted GI IVF ..add kcl for hypokalemia pt with peristent bloody diarrhea and high fever....?colonoscopy if persistent despite abx. Asthma - not in acute exacerbation duonebs if needed Factor 5 Leiden mutation Herniated cervical disc at home patient takes ibuprofen daily tylenol as need for discomfort DVT prophylaxis with SCDs Progress Note: Quality VTE Deep Vein Thrombosis/Pulmonary Embolism Present on Admission: No
[2018-08-06 10:28] LABS: Dohle Bodies Present; Eosinophils 2 % (0-4); Hypersegmented Neutrophils 1+; Lymphocytes 5 % (9-44); Monocytes 4 % (0-8)
--- NOTE | 2018-08-06 12:04 | P.PNGI ---
Subjective Interval history: Patient awake and alert Reports 3-4 episodes of dark brown loose stools with blood noted Endorses having lower abdominal intermittent cramping Denies any nausea or vomiting <Laine Vivascey - Last Filed: 08/06/18 11:56> Physical Exam Vital signs: Vital Signs 08/05/18 12:00 08/05/18 16:00 08/05/18 20:00 Temperature 99.9 F H 99.5 F 102.2 F H Pulse Rate 84 84 79 Respiratory Rate 18 18 17 Blood Pressure 108/59 L 129/72 132/78 Pulse Oximetry 96 99 99 08/06/18 00:00 08/06/18 03:51 08/06/18 04:00 Temperature 100.2 F H 100.4 F H Pulse Rate 86 81 89 Respiratory Rate 17 17 Blood Pressure 124/66 139/75 Pulse Oximetry 96 99 08/06/18 08:00 Temperature 98.0 F Pulse Rate 80 Respiratory Rate 16 Blood Pressure 112/66 Pulse Oximetry 95 Intake & Output 08/05/18 08/06/18 08/06/18 18:59 06:59 18:59 Intake Total 2540 / 2540 2320 / 2320 1200 / 1200 Output Total 400 / 400 Balance 2140 / 2140 2320 / 2320 1200 / 1200 Weight 59 kg Intake: IV 1500 / 1500 2200 / 2200 1200 / 1200 NS Inj 1,000 ML @ 125 mls/hr IV 1000 / 1000 2000 / 2000 1000 / 1000 .CONT .Q8H [facility] Rx#:[id number] Cipro 400 MG/200 ML Inj 400 mg 400 / 400 200 / 200 In 200 ml @ 200 mls/hr IV.SIG Q12H [facility] Rx#:[id number] Flagyl 500 MG Inj 100 ML @ 100 100 / 100 200 / 200 mls/hr IV.SIG Q8H [facility] Rx#: [id number] Oral 1040 / 1040 120 / 120 Output: Urine 400 / 400 Other: # Voids 1 1 Date of Last Bowel Movement 08/05/18 # Bowel Movements 0 - Constitutional no acute distress - Routine HEENT Exam Head: Present: normocephalic - Routine Respiratory Exam Present: CTA bilaterally. Absent: accessory muscle use - Routine Cardiovascular Exam Present: RRR - Routine Abdominal Exam Present: soft, normoactive bowel sounds, tenderness. Absent: distended, guarding, firm - Routine Extremities Exam Absent: edema - Routine Skin Exam Present: dry, warm. Absent: pallor - Routine Neurological Exam Present: alert - Routine Psychiatric Exam Present: normal affect, cooperative <Katie Vivas - Last Filed: 08/06/18 11:56> Vital signs: Vital Signs 08/06/18 16:00 08/06/18 19:29 08/06/18 20:00 Temperature 99.7 F H 99.2 F Pulse Rate 87 77 79 Respiratory Rate 16 18 Blood Pressure 124/72 126/58 L Pulse Oximetry 99 98 08/07/18 00:00 08/07/18 00:30 08/07/18 04:18 Temperature 98.7 F 99.2 F Pulse Rate 81 88 79 Respiratory Rate 18 18 Blood Pressure 135/85 120/66 Pulse Oximetry 98 98 08/07/18 08:00 08/07/18 12:00 Temperature 97.9 F 98.5 F Pulse Rate 75 75 Respiratory Rate 20 20 Blood Pressure 106/62 98/56 L Pulse Oximetry 98 98 Intake & Output 08/06/18 08/07/18 08/07/18 18:59 06:59 18:59 Intake Total 1960 / 1960 1380 / 1380 300 / 300 Output Total 800 / 800 Balance 1160 / 1160 1380 / 1380 300 / 300 Weight 60.7 kg Intake: IV 1500 / 1500 1200 / 1200 300 / 300 NS + KCl 40 mEq Inj 1,000 ML @ 1000 / 1000 100 mls/hr IV.CONT .Q10H [facility] Rx #:[id number] NS Inj 1,000 ML @ 125 mls/hr IV 1000 / 1000 .CONT .Q8H [facility] Rx#:[id number] Cipro 400 MG/200 ML Inj 400 mg 400 / 400 200 / 200 In 200 ml @ 200 mls/hr IV.SIG Q12H [facility] Rx#:[id number] Flagyl 500 MG Inj 100 ML @ 100 100 / 100 200 / 200 100 / 100 mls/hr IV.SIG Q8H [facility] Rx#: [id number] Oral 460 / 460 180 / 180 Output: Urine 800 / 800 Urine/Stool Mix 0 / 0 Other: # Voids 3 Date of Last Bowel Movement 08/07/18 # Bowel Movements 4 <Estuardo Pedorza - Last Filed: 08/07/18 14:49> Results - Labs CBC & Chem 7: 08/06/18 06:57 08/06/18 06:57 Laboratory Results - last 24 hr 08/05/18 08/05/18 08/06/18 03:30 17:02 06:57 WBC 10.5 RBC 3.40 L Hgb 11.1 L 10.5 L Hct 31.8 L 31.2 L MCV 91.7 MCH 30.9 MCHC 33.7 RDW 12.2 Plt Count 142 L D MPV 9.7 Prelim Diff (Auto) Slide review pending Neut % (Auto) 83.6 H Lymph % (Auto) 4.9 L [place] % (Auto) 10.8 H Eos % (Auto) 0.4 Baso % (Auto) 0.3 Neut # (Auto) 8.8 H Lymph # (Auto) 0.5 L [place] # (Auto) 1.1 H Eos # (Auto) 0.0 Baso # (Auto) 0.0 WBC Differential Manual diff final Seg Neuts % (Manual) 78 H Band Neuts % (Manual) 11 H Lymphocytes % (Manual) 5 L Monocytes % (Manual) 4 Eosinophils % (Manual) 2 Abs Neuts (Manual) 9.3 H Differential Comment . Hypersegmented Neuts 1+ H Dohle Bodies Present H Platelet Estimate Low L Platelet Morphology Enlarged H Sodium Potassium Chloride Carbon Dioxide Anion Gap BUN Creatinine Estimated GFR Random Glucose Calcium Total Bilirubin AST ALT Alkaline Phosphatase Total Protein Albumin Stl C.difficile DNA Amp Negative 08/06/18 06:57 WBC RBC Hgb Hct MCV MCH MCHC RDW Plt Count MPV Prelim Diff (Auto) Neut % (Auto) Lymph % (Auto) [place] % (Auto) Eos % (Auto) Baso % (Auto) Neut # (Auto) Lymph # (Auto) [place] # (Auto) Eos # (Auto) Baso # (Auto) WBC Differential Seg Neuts % (Manual) Band Neuts % (Manual) Lymphocytes % (Manual) Monocytes % (Manual) Eosinophils % (Manual) Abs Neuts (Manual) Differential Comment Hypersegmented Neuts Dohle Bodies Platelet Estimate Platelet Morphology Sodium 136 Potassium 2.8 L* D Chloride 105 Carbon Dioxide 22.2 Anion Gap 9 BUN 7 Creatinine 0.56 Estimated GFR Greater than 89 Random Glucose 137 H Calcium 8.0 L D Total Bilirubin 0.6 AST 17 ALT 12 Alkaline Phosphatase 67 Total Protein 5.1 L D Albumin 2.6 L D Stl C.difficile DNA Amp Microbiology 08/05/18 02:15 Clean Catch Urine Urine Culture - Final 10-50,000 cfu/mL mixed gram positive michela (probable contaminants) 08/05/18 03:30 Stool Enteric Pathogens (PCR) - Final No enteric pathogens detected by PCR (No Salmonella sp., Shigella sp., Campylobacter sp., Yersinia enterocolitica, Vibrio sp., Norovirus, or EHEC (Shiga Toxin 1 or Shiga Toxin 2) detected. 08/05/18 03:30 Stool Stool for WBCs - Final Few WBC's <Katie Vivas - Last Filed: 08/06/18 11:56> - Labs CBC & Chem 7: 08/06/18 06:57 08/07/18 07:16 Laboratory Results - last 24 hr 08/06/18 08/07/18 15:43 07:16 Sodium 139 Potassium 3.6 D 3.6 Chloride 109 H Carbon Dioxide 25.1 Anion Gap 5 BUN 3 L Creatinine 0.52 Estimated GFR Greater than 89 Random Glucose 100 Calcium 8.0 L Microbiology 08/05/18 14:30 Stool Cryptosporidium Antigen - Final Negative - No Cryptosporicium antigen detected In selected cases of patients with a history of immunosuppression or foreign travel, a full ova and parasites examination may be desired. Contact the microbiology lab if full workup is indicated and subit another specimen for testing. 08/05/18 14:30 Stool Giardia Antigen (EVER) - Final Negative - No Giardia Antigen detected In selected cases of patients with a history of immunosuppression or foreign travel, a full ova and parasites examination may be desired. Contact the microbiology lab if full workup is indicated and subit another specimen for testing. 08/05/18 02:15 Clean Catch Urine Urine Culture - Final 10-50,000 cfu/mL mixed gram positive michela (probable contaminants) <Estuardo Pedroza - Last Filed: 08/07/18 14:49> Assessment and Plan (1) Colitis Status: Acute Code(s): K52.9 - Noninfective gastroenteritis and colitis, unspecified - Plan This patient is a 52-year-old female with past medical history significant for asthma, bleeding disorder, factor V Leyden mutation, herniated disc, mitral valve prolapse and psoriasis. Surgical history significant for section. Patient presented to [facility] emergency department with report of nausea and abdominal cramping onset yesterday at 5 PM. Patient endorses that she has had nausea and vomiting with loose stools. Upon consultation, patient endorsed that stools were initially dark brown in color and then became bloody with some mucus. Patient describes her abdominal pain as constant and cramping. She also describes it as aching sharp and shooting. At this time she rates pain at 5 out of 10. Patient unsure if she had fever but does endorse chills and sweats. She describes emesis as undigested food. States last colonoscopy done in 2001 into her recollection there were no abnormal findings. Patient denies any use of tobacco or alcohol products and denies any family history of gastrointestinal disorders. CT on admission revealed inflammation from mid transverse colon to rectosigmoid portion. Our service has been consulted to evaluate patient for colitis. Colitis-likely infectious Patient endorses 1 day history of nausea with some vomiting and abdominal cramping. Patient states stools were initially dark and then became mucoid and bloody. Patient states pain was constant but is now intermittent. There are no known alleviating or aggravating factors. Unknown if patient had fever but she does endorse chills and sweats. 08/05/2018 CT abdomen and pelvis reveal the following--. Acute inflammatory process extending from the mid transverse colon to the rectosigmoid region. Small volume of free fluid. Consider ulcerative colitis. Although the pattern of distribution would be consistent with ischemic colitis the mesenteric vessels are widely patent. 08/05/2018 WBC 16.8 hemoglobin 13.4 hematocrit 41 Hemoglobin 11.2 hematocrit 33.3, LFTs within normal limits, C-reactive protein 0.29, lipase 132, lactic acid 1.5 08/06/2018 Patient endorses 3-4 episodes of dark brown mucoid bloody stool this a.m. States intermittent lower abdominal cramping -CT abdomen and pelvis findings as noted above -WBC 10.5 hemoglobin 10.5 hematocrit 31.2 platelet count 142 -Liver function within normal limits -Potassium 2.8-correction as per attending -C. difficile toxin negative -Few WBCs noted in stool -No enteric pathogens -Cryptosporidium and Giardia pending -Fecal Tarik protectant pending Plan -Clear liquid diet -Monitor labs -Electrolyte correction as per attending -Continue IV hydration -Flagyl -Cipro -Antiemetics and analgesics as per attending -Supportive care -Colonoscopy following resolution of symptoms This patient has been seen by myself and Dr. Pedroza and this note is written on his behalf - Attending Attestation Dr. Pedroza <Katie Vivas - Last Filed: 08/06/18 11:56> (1) Colitis Status: Acute Code(s): K52.9 - Noninfective gastroenteritis and colitis, unspecified - Attending Attestation Agree with above assessment and plan, will follow up with you. <Estuardo Pedroza - Last Filed: 08/07/18 14:49>
[2018-08-07] MEDS: Morphine Inj 4 MG/ML Vial IV.PUSH PRN ×5 (04:18→21:19)
[2018-08-07] MEDS: Ciprofloxacin 400 MG/200 ML 400 MG/200 ML PIGGYBACK IV.SIG SCH ×2 (06:16→17:17)
[2018-08-07 08:35] LABS: Anion Gap 5 meq/L (5-15); Blood Urea Nitrogen 3 mg/dL (7-18); Carbon Dioxide 25.1 meq/L (21.0-32.0); Chloride 109 meq/L (98-107); Glomerular Filtration Rate Greater Than 89 mL/min (>89); Glucose,Random 100 mg/dL (74-106); Potassium 3.6 meq/L (3.5-5.1); Sodium 139 meq/L (136-145)
--- NOTE | 2018-08-07 10:24 | P.PNIM ---
Subjective Interval history: still with severe abdomen pain and diarrhea. not really bloody stool now and fever imroved. leighton liquids Physical Exam Vital signs: Last Vital Signs Temp 97.9 F 08/07/18 08:00 Pulse 75 08/07/18 08:00 Resp 20 08/07/18 08:00 BP 120/66 08/07/18 04:18 Pulse Ox 98 08/07/18 08:00 Narrative: looks miserable heart reg lung cta abd bs/no rebound or distention. lower abd left side tenderness Results Labs CBC & Chem 7: 08/06/18 06:57 08/07/18 07:16 Assessment and Plan Assessment (1) Colitis: Code(s): K52.9 - Noninfective gastroenteritis and colitis, unspecified Status: Acute Plan The patient is a 52 year old female with a past medical history whish includes asthma, Factor 5 Leiden mutation, herniated cervical disc( takes ibuprofen daily for the pain), mitral valve prolapse and Psoriasis who presents to the [facility] emergency department due to nausea and abdominal cramping that began around 5 PM 08/04/18. She reports that she then developed nausea and vomiting x2 as well as having diarrhea every 10-30 minutes. She reports that the diarrhea was initially dark brown and then became bloody with mucus. The patient reports that her last meal was lunch and consisted of a tuna sandwich. She denies any sick contacts or recent antibiotic use. She reports that in the evening she began to have fevers, chills, and lightheaded sensation. She denies ever having a colonoscopy. The patient reports that the abdominal pain is present worse on th LLQ with radiation to the right side. She reports that the pain is constant and a cramping sensation with intermittent sharp jabbing pains. The patient denies having any cough, congestion, chest pain, shortness of breath or urinary symptoms. Colitis, infectious vs inflammatory bowel disease Abdomen/Pelvis CT 08/05/18 1. Acute inflammatory process extending from the mid transverse colon to the rectosigmoid region. Small volume of free fluid. Consider ulcerative colitis. Although the pattern of distribution would be consistent with ischemic colitis the mesenteric vessels are widely patent. Stool for C diff, WBCs and Enteric pathogens negative. WBC 16.8 on admission. Continue Cipro IV BID and Flagyl 500mg IV TID Clear liquid diet Consulted GI IVF with kcl fever and blood in stool better ...but still diarrhea and severe abdomen pains consider proceeding to colonoscopy. Asthma - not in acute exacerbation duonebs if needed Factor 5 Leiden mutation Herniated cervical disc at home patient takes ibuprofen daily tylenol as need for discomfort DVT prophylaxis with SCDs Progress Note: Quality VTE Deep Vein Thrombosis/Pulmonary Embolism Present on Admission: No
--- NOTE | 2018-08-07 14:25 | P.PNGI ---
Subjective Interval history: Patient laying supine in bed Reporting continued abdominal pain with mild improvement States no obvious bleeding in stools noted Intermittent nausea but reports increasing appetite asking for advancement of diet <Katie Vivas - Last Filed: 08/07/18 14:17> Physical Exam Vital signs: Vital Signs 08/06/18 16:00 08/06/18 19:29 08/06/18 20:00 Temperature 99.7 F H 99.2 F Pulse Rate 87 77 79 Respiratory Rate 16 18 Blood Pressure 124/72 126/58 L Pulse Oximetry 99 98 08/07/18 00:00 08/07/18 00:30 08/07/18 04:18 Temperature 98.7 F 99.2 F Pulse Rate 81 88 79 Respiratory Rate 18 18 Blood Pressure 135/85 120/66 Pulse Oximetry 98 98 08/07/18 08:00 08/07/18 12:00 Temperature 97.9 F 98.5 F Pulse Rate 75 75 Respiratory Rate 20 20 Blood Pressure 106/62 98/56 L Pulse Oximetry 98 98 Intake & Output 08/06/18 08/07/18 08/07/18 18:59 06:59 18:59 Intake Total 1960 / 1960 1380 / 1380 300 / 300 Output Total 800 / 800 Balance 1160 / 1160 1380 / 1380 300 / 300 Weight 60.7 kg Intake: IV 1500 / 1500 1200 / 1200 300 / 300 NS + KCl 40 mEq Inj 1,000 ML @ 1000 / 1000 100 mls/hr IV.CONT .Q10H [facility] Rx #:[id number] NS Inj 1,000 ML @ 125 mls/hr IV 1000 / 1000 .CONT .Q8H [facility] Rx#:[id number] Cipro 400 MG/200 ML Inj 400 mg 400 / 400 200 / 200 In 200 ml @ 200 mls/hr IV.SIG Q12H [facility] Rx#:[id number] Flagyl 500 MG Inj 100 ML @ 100 100 / 100 200 / 200 100 / 100 mls/hr IV.SIG Q8H [facility] Rx#: [id number] Oral 460 / 460 180 / 180 Output: Urine 800 / 800 Urine/Stool Mix 0 / 0 Other: # Voids 3 Date of Last Bowel Movement 08/07/18 # Bowel Movements 4 - Constitutional no acute distress, cooperative - Routine HEENT Exam Head: Present: normocephalic - Routine Respiratory Exam Present: CTA bilaterally - Routine Cardiovascular Exam Present: RRR, S1, S2 - Routine Abdominal Exam Present: soft, normoactive bowel sounds, tenderness. Absent: distended, firm - Routine Extremities Exam Absent: edema - Routine Skin Exam Present: dry, warm - Routine Neurological Exam Present: alert, oriented X3 - Routine Psychiatric Exam Present: normal affect, cooperative <Vivas,Katie - Last Filed: 08/07/18 14:17> Vital signs: Vital Signs 08/06/18 16:00 08/06/18 19:29 08/06/18 20:00 Temperature 99.7 F H 99.2 F Pulse Rate 87 77 79 Respiratory Rate 16 18 Blood Pressure 124/72 126/58 L Pulse Oximetry 99 98 08/07/18 00:00 08/07/18 00:30 08/07/18 04:18 Temperature 98.7 F 99.2 F Pulse Rate 81 88 79 Respiratory Rate 18 18 Blood Pressure 135/85 120/66 Pulse Oximetry 98 98 08/07/18 08:00 08/07/18 12:00 Temperature 97.9 F 98.5 F Pulse Rate 75 75 Respiratory Rate 20 20 Blood Pressure 106/62 98/56 L Pulse Oximetry 98 98 Intake & Output 08/06/18 08/07/18 08/07/18 18:59 06:59 18:59 Intake Total 1960 / 1960 1380 / 1380 300 / 300 Output Total 800 / 800 Balance 1160 / 1160 1380 / 1380 300 / 300 Weight 60.7 kg Intake: IV 1500 / 1500 1200 / 1200 300 / 300 NS + KCl 40 mEq Inj 1,000 ML @ 1000 / 1000 100 mls/hr IV.CONT .Q10H [facility] Rx #:[id number] NS Inj 1,000 ML @ 125 mls/hr IV 1000 / 1000 .CONT .Q8H [facility] Rx#:[id number] Cipro 400 MG/200 ML Inj 400 mg 400 / 400 200 / 200 In 200 ml @ 200 mls/hr IV.SIG Q12H [facility] Rx#:[id number] Flagyl 500 MG Inj 100 ML @ 100 100 / 100 200 / 200 100 / 100 mls/hr IV.SIG Q8H [facility] Rx#: [id number] Oral 460 / 460 180 / 180 Output: Urine 800 / 800 Urine/Stool Mix 0 / 0 Other: # Voids 3 Date of Last Bowel Movement 08/07/18 # Bowel Movements 4 <Den Pedrozairis Pacheco - Last Filed: 08/07/18 14:50> Results - Labs CBC & Chem 7: 08/06/18 06:57 08/07/18 07:16 Laboratory Results - last 24 hr 08/06/18 08/07/18 15:43 07:16 Sodium 139 Potassium 3.6 D 3.6 Chloride 109 H Carbon Dioxide 25.1 Anion Gap 5 BUN 3 L Creatinine 0.52 Estimated GFR Greater than 89 Random Glucose 100 Calcium 8.0 L Microbiology 08/05/18 14:30 Stool Cryptosporidium Antigen - Final Negative - No Cryptosporicium antigen detected In selected cases of patients with a history of immunosuppression or foreign travel, a full ova and parasites examination may be desired. Contact the microbiology lab if full workup is indicated and subit another specimen for testing. 08/05/18 14:30 Stool Giardia Antigen (EVER) - Final Negative - No Giardia Antigen detected In selected cases of patients with a history of immunosuppression or foreign travel, a full ova and parasites examination may be desired. Contact the microbiology lab if full workup is indicated and subit another specimen for testing. 08/05/18 02:15 Clean Catch Urine Urine Culture - Final 10-50,000 cfu/mL mixed gram positive michela (probable contaminants) <Katie Vivas - Last Filed: 08/07/18 14:17> - Labs CBC & Chem 7: 08/06/18 06:57 08/07/18 07:16 Laboratory Results - last 24 hr 08/06/18 08/07/18 15:43 07:16 Sodium 139 Potassium 3.6 D 3.6 Chloride 109 H Carbon Dioxide 25.1 Anion Gap 5 BUN 3 L Creatinine 0.52 Estimated GFR Greater than 89 Random Glucose 100 Calcium 8.0 L Microbiology 08/05/18 14:30 Stool Cryptosporidium Antigen - Final Negative - No Cryptosporicium antigen detected In selected cases of patients with a history of immunosuppression or foreign travel, a full ova and parasites examination may be desired. Contact the microbiology lab if full workup is indicated and subit another specimen for testing. 08/05/18 14:30 Stool Giardia Antigen (EVER) - Final Negative - No Giardia Antigen detected In selected cases of patients with a history of immunosuppression or foreign travel, a full ova and parasites examination may be desired. Contact the microbiology lab if full workup is indicated and subit another specimen for testing. 08/05/18 02:15 Clean Catch Urine Urine Culture - Final 10-50,000 cfu/mL mixed gram positive michela (probable contaminants) <Estuardo Pedroza - Last Filed: 08/07/18 14:50> Assessment and Plan (1) Colitis Status: Acute Code(s): K52.9 - Noninfective gastroenteritis and colitis, unspecified - Plan This patient is a 52-year-old female with past medical history significant for asthma, bleeding disorder, factor V Leyden mutation, herniated disc, mitral valve prolapse and psoriasis. Surgical history significant for section. Patient presented to [facility] emergency department with report of nausea and abdominal cramping onset yesterday at 5 PM. Patient endorses that she has had nausea and vomiting with loose stools. Upon consultation, patient endorsed that stools were initially dark brown in color and then became bloody with some mucus. Patient describes her abdominal pain as constant and cramping. She also describes it as aching sharp and shooting. At this time she rates pain at 5 out of 10. Patient unsure if she had fever but does endorse chills and sweats. She describes emesis as undigested food. States last colonoscopy done in 2001 into her recollection there were no abnormal findings. Patient denies any use of tobacco or alcohol products and denies any family history of gastrointestinal disorders. CT on admission revealed inflammation from mid transverse colon to rectosigmoid portion. Our service has been consulted to evaluate patient for colitis. Colitis-likely infectious Patient endorses 1 day history of nausea with some vomiting and abdominal cramping. Patient states stools were initially dark and then became mucoid and bloody. Patient states pain was constant but is now intermittent. There are no known alleviating or aggravating factors. Unknown if patient had fever but she does endorse chills and sweats. 08/05/2018 CT abdomen and pelvis reveal the following--. Acute inflammatory process extending from the mid transverse colon to the rectosigmoid region. Small volume of free fluid. Consider ulcerative colitis. Although the pattern of distribution would be consistent with ischemic colitis the mesenteric vessels are widely patent. 08/05/2018 WBC 16.8 hemoglobin 13.4 hematocrit 41 Hemoglobin 11.2 hematocrit 33.3, LFTs within normal limits, C-reactive protein 0.29, lipase 132, lactic acid 1.5 08/06/2018 Patient endorses 3-4 episodes of dark brown mucoid bloody stool this a.m. States intermittent lower abdominal cramping -CT abdomen and pelvis findings as noted above -WBC 10.5 hemoglobin 10.5 hematocrit 31.2 platelet count 142 -Liver function within normal limits -Potassium 2.8-correction as per attending -C. difficile toxin negative -Few WBCs noted in stool -No enteric pathogens -Cryptosporidium and Giardia pending -Fecal Tarik protectant pending 08/07/2018 Colitis Patient reports light brown stool without obvious noted bleeding this a.m. Intermittent lower abdominal cramping persists-mildly improved as per patient Stool studies negative Plan Advance to mechanical soft diet Continue IV hydration Flagyl Cipro Antiemetics and analgesics as per attending Supportive care Monitor hemoglobin and hematocrit Monitor for bleeding Plan for colonoscopy based on patient's clinical status and resolution of symptoms This patient has been seen by myself and Dr. Pedroza and this note is written on his behalf - Attending Attestation Dr. Pedroza <Katie Vivas - Last Filed: 08/07/18 14:17> (1) Colitis Status: Acute Code(s): K52.9 - Noninfective gastroenteritis and colitis, unspecified - Attending Attestation Agree with above. <Estuardo Pedroza - Last Filed: 08/07/18 14:50>
[2018-08-08] MEDS: Morphine Inj 4 MG/ML Vial IV.PUSH PRN ×3 (02:58→13:53)
[2018-08-08 06:52] LABS: Baso % (Auto) 0.4 % (0.0-2.0); Eos # (Auto) 0.3 th/mm3 (0.0-0.4); Hematocrit 25.5 % (35.0-46.0); Hemoglobin 8.8 gm/dL (11.6-15.3); Lymph # (Auto) 1.4 th/mm3 (1.0-4.8); Lymph % (Auto) 23.8 % (9.0-44.0); Mean Corpuscular HGB Conc 34.5 % (32.0-36.0); Mean Corpuscular Hemoglobin 31.1 pg (27.0-34.0); Mean Corpuscular Volume 90.3 fL (80.0-100.0); Mean Platelet Volume 9.8 fL (7.0-11.0); Mono # (Auto) 0.7 th/mm3 (0.0-0.9); Mono % (Auto) 12.1 % (0.0-8.0); Neut # (Auto) 3.4 th/mm3 (1.8-7.7); Neut % (Auto) 58.7 % (16.0-70.0); Platelet Count 120 th/mm3 (150-450); Red Blood Count 2.82 mil/mm3 (4.00-5.30); Red Cell Distribution Width 12.2 % (11.6-17.2); White Blood Count 5.8 th/mm3 (4.0-11.0)
[2018-08-08] MEDS: Ciprofloxacin 400 MG/200 ML 400 MG/200 ML PIGGYBACK IV.SIG SCH ×2 (07:25→18:10)
--- NOTE | 2018-08-08 11:14 | P.PNIM ---
Subjective Interval history: Pt reports that she had frequent loose to watery BMs last night but no further red blood noted. Pt was quite nauseated this morning and still with abd cramping. Pt also noted abd cramping with urination. Patient afebrile since 08/06/18 Physical Exam Vital signs: Last Vital Signs Temp 98 F 08/08/18 04:00 Pulse 73 08/08/18 04:00 Resp 16 08/08/18 04:00 BP 107/55 L 08/08/18 04:00 Pulse Ox 96 08/08/18 04:00 Narrative: General: Awake and alert, appears uncomfortable Cardiac: Regular Chest: CTA Abd: +BS, soft, nondistended, lower abdominal tenderness with night palpation worse on the left side, no rebound Ext: No edema Results Labs CBC & Chem 7: 08/12/18 06:19 08/12/18 06:19 Imaging Chest X-Ray 08/05/18 01:00 CONCLUSION: The lungs are clear. Abdomen/Pelvis CT 08/05/18 02:39 CONCLUSION: 1. Acute inflammatory process extending from the mid transverse colon to the rectosigmoid region. Small volume of free fluid. Consider ulcerative colitis. Although the pattern of distribution would be consistent with ischemic colitis the mesenteric vessels are widely patent. Assessment and Plan Assessment (1) Colitis: Code(s): K52.9 - Noninfective gastroenteritis and colitis, unspecified Status: Acute Plan The patient is a 52 year old female with a past medical history whish includes asthma, Factor 5 Leiden mutation, herniated cervical disc( takes ibuprofen daily for the pain), mitral valve prolapse and Psoriasis who presents to the [facility] emergency department due to nausea and abdominal cramping that began around 5 PM 08/04/18. She reports that she then developed nausea and vomiting x2 as well as having diarrhea every 10-30 minutes. She reports that the diarrhea was initially dark brown and then became bloody with mucus. The patient reports that her last meal was lunch and consisted of a tuna sandwich. She denies any sick contacts or recent antibiotic use. She reports that in the evening she began to have fevers, chills, and lightheaded sensation. She denies ever having a colonoscopy. The patient reports that the abdominal pain is present worse on th LLQ with radiation to the right side. She reports that the pain is constant and a cramping sensation with intermittent sharp jabbing pains. The patient denies having any cough, congestion, chest pain, shortness of breath or urinary symptoms. Colitis, infectious vs inflammatory bowel disease - CT Abd/Pelvis (08/05/18) - Acute inflammatory process extending from the mid transverse colon to the rectosigmoid region. Small volume of free fluid. Consider ulcerative colitis. Although the pattern of distribution would be consistent with ischemic colitis the mesenteric vessels are widely patent. - Stool for C diff, WBCs and Enteric pathogens negative. - WBC 16.8 on admission. - Continue Cipro IV BID and Flagyl 500mg IV TID - GI is following. - Cont. IVF with kcl - Pt tolerating small amount of solid foods. Pts fever has improved and blood in stool is better but still quite nauseated and with cramping abd pain/ diarrhea. - Fecal Calprotectin test order was not received by the laboratory. Spoke with Haseeb in Microbiology and reordered the test and it will be sent out today. They report the test is a send out and typically takes 3-6 days once the send out lab receives the specimen before they get any results back. So potentially we won't have these results until later next week. - Will discuss with GI if they are considering proceeding to colonoscopy. - Pts H/H dropped to 8.8/25.5. Monitor closely. - Repeat labs in AM - Zofran PRN - Add Bentyl Asthma - not in acute exacerbation - Duonebs if needed Factor 5 Leiden mutation Psoriasis Herniated cervical disc - Pt takes home patient takes ibuprofen daily - Tylenol as need for discomfort DVT prophylaxis with SCDs Attending Attestation Patient examined. Assessment and plan formulated with Megan Romero PA-C. I agree with the above. colonoscopy tomorrow. cont abx. ivf. prn zofran trial bentyl. Progress Note: Quality VTE Deep Vein Thrombosis/Pulmonary Embolism Present on Admission: No
--- NOTE | 2018-08-08 13:04 | P.PNGI ---
Subjective Interval history: Patient resting in bed Reports generalized lower abdominal cramping States stools are loose and not watery Denies any obvious bleeding Tolerating diet with some nausea and no vomiting Afebrile <Katie Vivas - Last Filed: 08/08/18 12:55> Physical Exam Vital signs: Vital Signs 08/07/18 16:00 08/07/18 20:00 08/08/18 00:00 Temperature 97.0 F L 99 F 99 F Pulse Rate 76 78 79 Respiratory Rate 18 17 18 Blood Pressure 101/57 L 107/56 L 126/59 L Pulse Oximetry 98 99 98 08/08/18 04:00 Temperature 98 F Pulse Rate 73 Respiratory Rate 16 Blood Pressure 107/55 L Pulse Oximetry 96 Intake & Output 08/07/18 08/08/18 08/08/18 18:59 06:59 18:59 Intake Total 1979 1520 / 1520 300 / 300 Balance 1979 1520 / 1520 300 / 300 Weight 58 kg Intake: IV 1500 / 1500 1100 / 1100 300 / 300 NS + KCl 40 mEq Inj 1,000 ML @ 1000 / 1000 1000 / 1000 100 mls/hr IV.CONT .Q10H VAISHALI Rx #:[id number] Cipro 400 MG/200 ML Inj 400 mg 400 / 400 200 / 200 In 200 ml @ 200 mls/hr IV.SIG Q12H VAISHALI Rx#:[id number] Flagyl 500 MG Inj 100 ML @ 100 100 / 100 100 / 100 100 / 100 mls/hr IV.SIG Q8H VAISHALI Rx#: [id number] Oral 480 / 480 420 / 420 Other: # Voids 2 2 Date of Last Bowel Movement 08/07/18 - Constitutional no acute distress - Routine HEENT Exam Head: Present: normocephalic - Routine Respiratory Exam Present: CTA bilaterally. Absent: accessory muscle use - Routine Cardiovascular Exam Present: RRR, S1, S2 - Routine Abdominal Exam Present: soft, normoactive bowel sounds, tenderness. Absent: distended, guarding, firm Comments: Bilateral lower quadrant - Routine Extremities Exam Absent: edema - Routine Skin Exam Present: dry, warm - Routine Neurological Exam Present: alert, moving all extremities - Routine Psychiatric Exam Present: normal affect, cooperative <Katie Vivas - Last Filed: 08/08/18 12:55> Vital signs: Vital Signs 08/08/18 00:00 08/08/18 04:00 08/08/18 08:00 Temperature 99 F 98 F Pulse Rate 79 73 82 Respiratory Rate 18 16 Blood Pressure 126/59 L 107/55 L Pulse Oximetry 98 96 97 08/08/18 12:00 08/08/18 16:00 08/08/18 20:00 Temperature 98.0 F 97.9 F 99 F Pulse Rate 80 73 69 Respiratory Rate 16 16 17 Blood Pressure 101/63 121/68 120/80 Pulse Oximetry 96 98 99 Intake & Output 08/08/18 08/08/18 08/09/18 06:59 18:59 06:59 Intake Total 1520 / 1520 1860 / 1860 200 / 200 Output Total 600 / 600 Balance 1520 / 1520 1260 / 1260 200 / 200 Weight 58 kg Intake: IV 1100 / 1100 1400 / 1400 200 / 200 NS + KCl 40 mEq Inj 1,000 ML @ 1000 / 1000 1000 / 1000 100 mls/hr IV.CONT .Q10H VAISHALI Rx #:[id number] Cipro 400 MG/200 ML Inj 400 mg 200 / 200 200 / 200 In 200 ml @ 200 mls/hr IV.SIG Q12H VAISHALI Rx#:[id number] Flagyl 500 MG Inj 100 ML @ 100 100 / 100 200 / 200 mls/hr IV.SIG Q8H VAISHALI Rx#: [id number] Oral 420 / 420 460 / 460 Output: Urine 600 / 600 Other: # Voids 2 1 Date of Last Bowel Movement 08/07/18 08/08/18 # Bowel Movements 0 <Estuardo Pedroza - Last Filed: 08/08/18 22:00> Results - Labs CBC & Chem 7: 08/08/18 06:00 08/07/18 07:16 Laboratory Results - last 24 hr 08/08/18 06:00 WBC 5.8 RBC 2.82 L Hgb 8.8 L Hct 25.5 L MCV 90.3 MCH 31.1 MCHC 34.5 RDW 12.2 Plt Count 120 L MPV 9.8 Neut % (Auto) 58.7 Lymph % (Auto) 23.8 [place] % (Auto) 12.1 H Eos % (Auto) 5.0 H Baso % (Auto) 0.4 Neut # (Auto) 3.4 Lymph # (Auto) 1.4 [place] # (Auto) 0.7 Eos # (Auto) 0.3 Baso # (Auto) 0.0 WBC Differential . Differential Comment Auto diff final Microbiology 08/05/18 14:30 Stool Cryptosporidium Antigen - Final Negative - No Cryptosporicium antigen detected In selected cases of patients with a history of immunosuppression or foreign travel, a full ova and parasites examination may be desired. Contact the microbiology lab if full workup is indicated and subit another specimen for testing. 08/05/18 14:30 Stool Giardia Antigen (EVER) - Final Negative - No Giardia Antigen detected In selected cases of patients with a history of immunosuppression or foreign travel, a full ova and parasites examination may be desired. Contact the microbiology lab if full workup is indicated and subit another specimen for testing. <Katie Vivas - Last Filed: 08/08/18 12:55> - Labs CBC & Chem 7: 08/08/18 06:00 08/07/18 07:16 Laboratory Results - last 24 hr 08/08/18 06:00 WBC 5.8 RBC 2.82 L Hgb 8.8 L Hct 25.5 L MCV 90.3 MCH 31.1 MCHC 34.5 RDW 12.2 Plt Count 120 L MPV 9.8 Neut % (Auto) 58.7 Lymph % (Auto) 23.8 [place] % (Auto) 12.1 H Eos % (Auto) 5.0 H Baso % (Auto) 0.4 Neut # (Auto) 3.4 Lymph # (Auto) 1.4 [place] # (Auto) 0.7 Eos # (Auto) 0.3 Baso # (Auto) 0.0 WBC Differential . Differential Comment Auto diff final <Estuardo Pedroza - Last Filed: 08/08/18 22:00> Assessment and Plan (1) Colitis Status: Acute Code(s): K52.9 - Noninfective gastroenteritis and colitis, unspecified - Plan This patient is a 52-year-old female with past medical history significant for asthma, bleeding disorder, factor V Leyden mutation, herniated disc, mitral valve prolapse and psoriasis. Surgical history significant for section. Patient presented to [facility] emergency department with report of nausea and abdominal cramping onset yesterday at 5 PM. Patient endorses that she has had nausea and vomiting with loose stools. Upon consultation, patient endorsed that stools were initially dark brown in color and then became bloody with some mucus. Patient describes her abdominal pain as constant and cramping. She also describes it as aching sharp and shooting. At this time she rates pain at 5 out of 10. Patient unsure if she had fever but does endorse chills and sweats. She describes emesis as undigested food. States last colonoscopy done in 2001 into her recollection there were no abnormal findings. Patient denies any use of tobacco or alcohol products and denies any family history of gastrointestinal disorders. CT on admission revealed inflammation from mid transverse colon to rectosigmoid portion. Our service has been consulted to evaluate patient for colitis. Colitis-likely infectious Patient endorses 1 day history of nausea with some vomiting and abdominal cramping. Patient states stools were initially dark and then became mucoid and bloody. Patient states pain was constant but is now intermittent. There are no known alleviating or aggravating factors. Unknown if patient had fever but she does endorse chills and sweats. 08/05/2018 CT abdomen and pelvis reveal the following--. Acute inflammatory process extending from the mid transverse colon to the rectosigmoid region. Small volume of free fluid. Consider ulcerative colitis. Although the pattern of distribution would be consistent with ischemic colitis the mesenteric vessels are widely patent. 08/05/2018 WBC 16.8 hemoglobin 13.4 hematocrit 41 Hemoglobin 11.2 hematocrit 33.3, LFTs within normal limits, C-reactive protein 0.29, lipase 132, lactic acid 1.5 08/06/2018 Patient endorses 3-4 episodes of dark brown mucoid bloody stool this a.m. States intermittent lower abdominal cramping -CT abdomen and pelvis findings as noted above -WBC 10.5 hemoglobin 10.5 hematocrit 31.2 platelet count 142 -Liver function within normal limits -Potassium 2.8-correction as per attending -C. difficile toxin negative -Few WBCs noted in stool -No enteric pathogens -Cryptosporidium and Giardia pending -Fecal Tarik protectant pending 08/07/2018 Colitis Patient reports light brown stool without obvious noted bleeding this a.m. Intermittent lower abdominal cramping persists-mildly improved as per patient Stool studies negative 08/08/2017 Colitis Patient reporting stools now loose and not watery; afebrile As noted in documentation, per attending fecal Tarik protectant specimen to be sent today Anemia Denies any noted bleeding however hemoglobin 8.8 noted to continue to trend downwards; will proceed with endoscopic procedures Plan -Clear liquid diet today -N.p.o. after midnight -Consent for EGD and colonoscopy -GoLYTELY prep -IV hydration -Continue IV antibiotics -Antiemetics and analgesics as per attending -Monitor hemoglobin and hematocrit -Monitor for obvious bleeding -Supportive care This patient has been seen by myself and Dr. Pedroza and this note is written on his behalf - Attending Attestation Dr. Pedroza <Katie Vivas - Last Filed: 08/08/18 12:55> (1) Colitis Status: Acute Code(s): K52.9 - Noninfective gastroenteritis and colitis, unspecified - Attending Attestation Agree with above assessment and plan, will proceed with EGD and Colonoscopy in AM. <Estuardo Pedroza - Last Filed: 08/08/18 22:00>
[2018-08-08] MEDS ORDERED: PEG 3350/E-Lyte Soln 4000 ML Bottle PO ONE (16:00)
[2018-08-09] MEDS: Ciprofloxacin 400 MG/200 ML 400 MG/200 ML PIGGYBACK IV.SIG SCH ×2 (06:24→17:17)
[2018-08-09 08:37] LABS: Baso % (Auto) 0.5 % (0.0-2.0); Eos # (Auto) 0.2 th/mm3 (0.0-0.4); Eos % (Auto) 3.9 % (0.0-4.0); Hematocrit 29.4 % (35.0-46.0); Hemoglobin 10.1 gm/dL (11.6-15.3); Lymph # (Auto) 1.1 th/mm3 (1.0-4.8); Lymph % (Auto) 25.4 % (9.0-44.0); Mean Corpuscular HGB Conc 34.5 % (32.0-36.0); Mean Corpuscular Hemoglobin 31.2 pg (27.0-34.0); Mean Corpuscular Volume 90.4 fL (80.0-100.0); Mean Platelet Volume 9.7 fL (7.0-11.0); Mono # (Auto) 0.6 th/mm3 (0.0-0.9); Mono % (Auto) 14.1 % (0.0-8.0); Neut # (Auto) 2.5 th/mm3 (1.8-7.7); Neut % (Auto) 56.1 % (16.0-70.0); Platelet Count 167 th/mm3 (150-450); Red Blood Count 3.25 mil/mm3 (4.00-5.30); Red Cell Distribution Width 11.9 % (11.6-17.2); White Blood Count 4.4 th/mm3 (4.0-11.0)
[2018-08-09 09:05] LABS: Anion Gap 8 meq/L (5-15); Blood Urea Nitrogen 2 mg/dL (7-18); Calcium 8.5 mg/dL (8.5-10.1); Carbon Dioxide 26.4 meq/L (21.0-32.0); Chloride 106 meq/L (98-107); Glomerular Filtration Rate Greater Than 89 mL/min (>89); Glucose,Random 111 mg/dL (74-106); Potassium 3.4 meq/L (3.5-5.1); Sodium 140 meq/L (136-145)
--- NOTE | 2018-08-09 09:08 | GIPROC ---
[facility] [address] [facility]. [facility], [address] EGD PROCEDURE REPORT EXAM DATE: 08/09/2018 PATIENT NAME: Latosha Villanueva MR #: [id number] BIRTHDATE: 1965 ATTENDING: Estuardo Pedroza MD ORDER #: [id number] PREVENTATIVE MAINTENANCE TECHNICIAN: Klaus Gilmore and Rosa Maria Garcia STATUS: inpatient INDICATIONS: The patient is a 52 yr old female here for an EGD due to abdominal pain PROCEDURE PERFORMED: EGD w/ biopsy MEDICATIONS: Per Anesthesia and None. TOPICAL ANESTHETIC: none CONSENT: The patient understands the risks and benefits of the procedure and understands that these risks include, but are not limited to: sedation, allergic reaction, infection, perforation and/or bleeding. Alternative means of evaluation and treatment include, among others: physical exam, x-rays, and/or surgical intervention. The patient elects to proceed with this endoscopic procedure. medical equipment was checked for proper function. Hand hygiene and appropriate measures for infection prevention was taken. After the risks, benefits and alternatives of the procedure were thoroughly explained, Informed consent was verified, confirmed and timeout was successfully executed by the treatment team. The patient was anesthetized with topical anesthesia and the EC-3490Li (Pedi C) endoscope was introduced through the mouth and advanced to the second portion of the duodenum. Retroflexed views revealed no abnormalities The gastroscope was then slowly withdrawn and removed. ESOPHAGUS: A small hiatal hernia was noted. A Schatzki ring was found in the distal esophagus and was widely open. DUODENUM: The duodenal mucosa appeared normal in the duodenal bulb and 2nd part duodenum. STOMACH: A medium sized non-bleeding, irregular shaped, deep and clean-based ulcer with surrounding edema was found in the gastric antrum. Biopsies were taken at edge of the ulcer and at the center of the ulcer. ADVERSE EVENTS: There were no complications. IMPRESSIONS: 1. Small hiatal hernia 2. Schatzki ring was found in the distal esophagus 3. Medium sized ulcer was found in the gastric antrum; biopsies were taken 4. Normal duodenal mucosa in the duodenal bulb and 2nd part duodenum 5. Retroflexed views revealed no abnormalities RECOMMENDATIONS: 1. Await biopsy results. Biopsy results will not be ready for 7-10 days. If you don't hear from us in two weeks, call our office for biopsy results. 2. Continue PPI 3. Avoid NSAIDS PATIENT CONDITION: stable DISPOSITION: Observation REPEAT EXAM: EGD pending biopsy results Estuardo Pedroza MD eSigned: Estuardo Pedroza MD 08/09/2018 9:07 AM cc: PATIENT NAME: Latosha Villanueva MR#: [id number]
--- NOTE | 2018-08-09 09:14 | GIPROC ---
[facility] [address] [facility]. [facility], [address] COLONOSCOPY PROCEDURE REPORT EXAM DATE: 08/09/2018 PATIENT NAME: Latosha Villanueva MR #: [id number] BIRTHDATE: 1965 ENDOSCOPIST: Estuardo Pedroza MD ORDER #: [id number] ENTERPRISE ACCOUNT EXECUTIVE: Klaus Gilmore and Rosa Maria Garcia STATUS: inpatient INDICATIONS: The patient is a 52 yr old female here for a colonoscopy due to abdominal pain PROCEDURE PERFORMED: Colonoscopy with biopsy MEDICATIONS: Per Anesthesia and None. PREP QUALITY: suboptimal PREP TYPE:GoLytely ESTIMATED BLOOD LOSS: None CONSENT: The patient understands the risks and benefits of the procedure and understands that these risks include, but are not limited to: sedation, allergic reaction, infection, perforation and/or bleeding. Alternative means of evaluation and treatment include, among others: physical exam, x-rays, and/or surgical intervention. The patient elects to proceed with this endoscopic procedure. medical equipment was checked for proper function. Hand hygiene and appropriate measures for infection prevention was taken. After the risks, benefits and alternatives of the procedure were thoroughly explained, Informed consent was verified, confirmed and timeout was successfully executed by the treatment team. A digital exam revealed no abnormalities of the rectum The Pentax EC-3490Li endoscope was introduced through the anus and advanced to the cecum, which was identified by both the appendix and ileocecal valve. The instrument was then slowly withdrawn as the colon was fully examined. COLON FINDINGS: A diffuse circumferential patch of colitis was found at the splenic flexure and in the transverse colon. The mucosa was ulcerated, erythematous, edematous, congested and had deep ulcers. Multiple biopsies were performed using cold forceps. Retroflexed views revealed no abnormalities The scope was then completely withdrawn from the patient and the procedure terminated. PROCEDURE WITHDRAWAL TIME:10minutes ADVERSE EVENTS: There were no complications. IMPRESSIONS: Diffuse circumferential colitis was found at the splenic flexure and in the transverse colon; The mucosa was ulcerated, erythematous, edematous, congested and had deep ulcers; multiple biopsies were performed using cold forceps RECOMMENDATIONS: Await biopsy results. Biopsy results will not be ready for 7-10 days. If you don't hear from us in two weeks, call our office for results. RECALL: Return 1 year Colonoscopy Estuardo Pedroza MD eSigned: Estuardo Pedroza MD 08/09/2018 9:14 AM cc:
--- NOTE | 2018-08-09 09:46 | P.PNIM ---
Subjective Interval history: Pt reports that she had a terrible night last night with the prep. No bloody diarrhea noted during clean out with the prep She started having a lot of post-nasal drip with associated coughing. Pt requesting Claritin D which she takes at home She had EGD/colonoscopy this morning which revealed small hiatal hernia, Schatzki ring was found in the distal esophagus, medium sized ulcer was found in the gastric antrum, diffuse circumferential colitis was found at the splenic flexure and in the transverse colon; The mucosa was ulcerated, erythematous, edematous, congested and had deep ulcers. Multiple biopsies were taken from the gastric ulcer and the colonic ulcers/inflammation Physical Exam Vital signs: Last Vital Signs Temp 98.3 F 08/09/18 09:03 Pulse 81 08/09/18 09:03 Resp 12 08/09/18 09:03 BP 111/62 08/09/18 09:03 Pulse Ox 98 08/09/18 09:03 Narrative: General: Awake and alert, appears uncomfortable Cardiac: Regular Chest: CTA Abd: +BS, soft, nondistended, lower abdominal tenderness with night palpation worse on the left side, no rebound Ext: No edema Results Labs CBC & Chem 7: 08/12/18 06:19 08/12/18 06:19 Imaging Chest X-Ray 08/05/18 01:00 CONCLUSION: The lungs are clear. Abdomen/Pelvis CT 08/05/18 02:39 CONCLUSION: 1. Acute inflammatory process extending from the mid transverse colon to the rectosigmoid region. Small volume of free fluid. Consider ulcerative colitis. Although the pattern of distribution would be consistent with ischemic colitis the mesenteric vessels are widely patent. Assessment and Plan Assessment (1) Colitis: Code(s): K52.9 - Noninfective gastroenteritis and colitis, unspecified Status: Acute Plan The patient is a 52 year old female with a past medical history whish includes asthma, Factor 5 Leiden mutation, herniated cervical disc( takes ibuprofen daily for the pain), mitral valve prolapse and Psoriasis who presents to the [facility] emergency department due to nausea and abdominal cramping that began around 5 PM 08/04/18. She reports that she then developed nausea and vomiting x2 as well as having diarrhea every 10-30 minutes. She reports that the diarrhea was initially dark brown and then became bloody with mucus. The patient reports that her last meal was lunch and consisted of a tuna sandwich. She denies any sick contacts or recent antibiotic use. She reports that in the evening she began to have fevers, chills, and lightheaded sensation. She denies ever having a colonoscopy. The patient reports that the abdominal pain is present worse on th LLQ with radiation to the right side. She reports that the pain is constant and a cramping sensation with intermittent sharp jabbing pains. The patient denies having any cough, congestion, chest pain, shortness of breath or urinary symptoms. Colitis, infectious vs inflammatory bowel disease - CT Abd/Pelvis (08/05/18) - Acute inflammatory process extending from the mid transverse colon to the rectosigmoid region. Small volume of free fluid. Consider ulcerative colitis. Although the pattern of distribution would be consistent with ischemic colitis the mesenteric vessels are widely patent. - Stool for C diff, WBCs and Enteric pathogens negative. - WBC 16.8 on admission. - Continue Cipro IV BID and Flagyl 500mg IV TID - GI is following. - Cont. IVF with kcl - Pt tolerating small amount of solid foods. Pts fever has improved and blood in stool is better but still quite nauseated and with cramping abd pain/ diarrhea. - Fecal Calprotectin test order was not received by the laboratory. Specimen was sent out on 08/08/18. They report the test is a send out and typically takes 3-6 days once the send out lab receives the specimen before they get any results back. So potentially we won't have these results until later next week. - EGD/colonoscopy (08/09/18) -->Small hiatal hernia, Schatzki ring was found in the distal esophagus, medium sized ulcer was found in the gastric antrum, diffuse circumferential colitis was found at the splenic flexure and in the transverse colon; The mucosa was ulcerated, erythematous, edematous, congested and had deep ulcers. - Multiple biopsies were taken from the gastric ulcer and the colonic ulcers/ inflammation which are pending. - Pts H/H dropped to 8.8/25.5 on 08/08 but repeat labs on 08/09 with Hgb 10.1/Hct 29.4 without transfusion. - Monitor closely. Repeat labs in AM - Start Protonix 40mg BID - She had been taking Ibuprofen daily priorr to admission. Discussed that this should not be resumed following discharge. - Zofran PRN - Cont. Bentyl 20mg TID Asthma - not in acute exacerbation - Duonebs if needed Factor 5 Leiden mutation Psoriasis Herniated cervical disc - Pt takes home patient takes ibuprofen daily - Tylenol as need for discomfort DVT prophylaxis with SCDs Attending Attestation Patient examined. Assessment and plan formulated with Megan Romero PA-C. I agree with the above. colitis transvere/descending. s/p colonoscopy. concern for ischemic colitis. cont abx to cover infectious. await bx to r/o ibd. gastric ulcer. uses nsaids. r/o h.pylori. ppi. cont regular diet and await bx. Progress Note: Quality VTE Deep Vein Thrombosis/Pulmonary Embolism Present on Admission: No
[2018-08-09] MEDS: Loratadine/Pseudoephedrine 12HR Tablet PO SCH ×2 (10:28→20:54)
[2018-08-10] MEDS: Ciprofloxacin 400 MG/200 ML 400 MG/200 ML PIGGYBACK IV.SIG SCH (05:05)
[2018-08-10] MEDS: Loratadine/Pseudoephedrine 12HR Tablet PO SCH ×2 (09:22→21:27)
--- NOTE | 2018-08-10 11:35 | P.PNIM ---
Subjective Interval history: more sinus drainage and cough wheezing Physical Exam Vital signs: Last Vital Signs Temp 98.8 F 08/10/18 08:00 Pulse 80 08/10/18 08:00 Resp 18 08/10/18 08:00 BP 118/75 08/10/18 08:00 Pulse Ox 96 08/10/18 08:00 Narrative: lying in bed post nasal drainage noted heart reg lung bilateral wheezing abd s/left side tenderness. no rebound ext no edema Results Labs CBC & Chem 7: 08/09/18 07:50 08/09/18 07:50 Assessment and Plan Assessment (1) Colitis: Code(s): K52.9 - Noninfective gastroenteritis and colitis, unspecified Status: Acute Plan The patient is a 52 year old female with a past medical history whish includes asthma, Factor 5 Leiden mutation, herniated cervical disc( takes ibuprofen daily for the pain), mitral valve prolapse and Psoriasis who presents to the [facility] emergency department due to nausea and abdominal cramping that began around 5 PM 08/04/18. She reports that she then developed nausea and vomiting x2 as well as having diarrhea every 10-30 minutes. She reports that the diarrhea was initially dark brown and then became bloody with mucus. The patient reports that her last meal was lunch and consisted of a tuna sandwich. She denies any sick contacts or recent antibiotic use. She reports that in the evening she began to have fevers, chills, and lightheaded sensation. She denies ever having a colonoscopy. The patient reports that the abdominal pain is present worse on th LLQ with radiation to the right side. She reports that the pain is constant and a cramping sensation with intermittent sharp jabbing pains. The patient denies having any cough, congestion, chest pain, shortness of breath or urinary symptoms. Colitis, infectious vs inflammatory bowel disease - CT Abd/Pelvis (08/05/18) - Acute inflammatory process extending from the mid transverse colon to the rectosigmoid region. Small volume of free fluid. Consider ulcerative colitis. Although the pattern of distribution would be consistent with ischemic colitis the mesenteric vessels are widely patent. - Stool for C diff, WBCs and Enteric pathogens negative. - WBC 16.8 on admission. - Continue Cipro IV BID and Flagyl 500mg IV TID and convert to po levaquin and flagyl on 08/10. - GI is following. - stop ivf 08/10. - Fecal Calprotectin test order was not received by the laboratory. Specimen was sent out on 08/08/18. They report the test is a send out and typically takes 3-6 days once the send out lab receives the specimen before they get any results back. So potentially we won't have these results until later next week. - EGD/colonoscopy (08/09/18) -->Small hiatal hernia, Schatzki ring was found in the distal esophagus, medium sized ulcer was found in the gastric antrum, diffuse circumferential colitis was found at the splenic flexure and in the transverse colon; The mucosa was ulcerated, erythematous, edematous, congested and had deep ulcers. - Multiple biopsies were taken from the gastric ulcer and the colonic ulcers/ inflammation which are pending. - Pts H/H dropped to 8.8/25.5 on 08/08 but repeat labs on 08/09 with Hgb 10.1/Hct 29.4 without transfusion. - Start Protonix 40mg BID - She had been taking Ibuprofen daily priorr to admission. Discussed that this should not be resumed following discharge. - Zofran PRN - Cont. Bentyl 20mg TID f/u colonic and gastric bx's. GI thought colonic appearance still might be ischemic colitis. Asthma - Pt now with more sinus congestion, postnasal gtt, and wheezing. will convert cipro to levaquin for better respiratory coverage. start duonebs scheduled. on claritin-d. stop ivf. get cxr. Factor 5 Leiden mutation Psoriasis Herniated cervical disc - Pt takes home patient takes ibuprofen daily - Tylenol as need for discomfort DVT prophylaxis with SCDs Progress Note: Quality VTE Deep Vein Thrombosis/Pulmonary Embolism Present on Admission: No
[2018-08-10] MEDS ORDERED: MethylPREDNISolone Sod Succinate Inj 125 MG/2 ML Vial IV.PUSH ONE (12:00)
[2018-08-10 12:09] LABS: Baso % (Auto) 0.5 % (0.0-2.0); Eos # (Auto) 0.2 th/mm3 (0.0-0.4); Eos % (Auto) 4.7 % (0.0-4.0); Hematocrit 28.9 % (35.0-46.0); Hemoglobin 9.9 gm/dL (11.6-15.3); Lymph # (Auto) 0.8 th/mm3 (1.0-4.8); Lymph % (Auto) 16.9 % (9.0-44.0); Mean Corpuscular HGB Conc 34.3 % (32.0-36.0); Mean Corpuscular Hemoglobin 31.5 pg (27.0-34.0); Mean Corpuscular Volume 91.8 fL (80.0-100.0); Mean Platelet Volume 9.4 fL (7.0-11.0); Mono # (Auto) 0.9 th/mm3 (0.0-0.9); Mono % (Auto) 18.5 % (0.0-8.0); Neut # (Auto) 2.8 th/mm3 (1.8-7.7); Neut % (Auto) 59.4 % (16.0-70.0); Platelet Count 180 th/mm3 (150-450); Red Blood Count 3.15 mil/mm3 (4.00-5.30); Red Cell Distribution Width 12.4 % (11.6-17.2); White Blood Count 4.6 th/mm3 (4.0-11.0)
--- NOTE | 2018-08-10 12:16 | XR ---
EXAM DATE: 08/10/2018 12:11 PM EST AGE/SEX: 52 years / Female INDICATIONS: Cough CLINICAL DATA: This is the patient's initial encounter. Patient reports that signs and symptoms have been present for 2 days and indicates a pain score of 0/10. MEDICAL/SURGICAL HISTORY: None. None. COMPARISON: [facility] [place], CHEST 1V SINGLE AP, 08/05/2018. . FINDINGS: AP upright portable view of the chest demonstrates hazy airspace opacity overlying the posterior medi al right hemithorax. The lungs are otherwise clear. Heart size is normal. Pulmonary vasculature is no rmal. CONCLUSION: Possible early right middle lobe airspace consolidation. Electronically signed by: Twila Sandhu MD Board Certified Radiologist 08/10/2018 12:15 PM JANNA T
--- NOTE | 2018-08-10 12:38 | P.PNGI ---
Subjective Interval history: Patient denies any further bleeding today but still appears weak with decreased appetite Nausea but no obvious vomiting Mild diffuse abdominal discomfort which seems to wax and wane <Claire Abraham - Last Filed: 08/10/18 12:38> Physical Exam Vital signs: Vital Signs 08/09/18 16:00 08/09/18 20:00 08/10/18 00:00 Temperature 98.1 F 97.8 F 98.6 F Pulse Rate 70 86 81 Respiratory Rate 18 17 17 Blood Pressure 136/92 H 107/63 107/70 Pulse Oximetry 98 100 97 08/10/18 04:00 08/10/18 08:00 Temperature 98.0 F 98.8 F Pulse Rate 72 80 Respiratory Rate 16 18 Blood Pressure 110/72 118/75 Pulse Oximetry 99 96 Intake & Output 08/09/18 08/10/18 08/10/18 18:59 06:59 18:59 Intake Total 2650 / 2650 1800 / 1800 Balance 2650 / 2650 1800 / 1800 Intake: IV 2400 / 2400 1800 / 1800 NS + KCl 40 mEq Inj 1,000 ML @ 1900 / 1900 1400 / 1400 100 mls/hr IV.CONT .Q10H [facility]ALI Rx #:[id number] Cipro 400 MG/200 ML Inj 400 mg 400 / 400 200 / 200 In 200 ml @ 200 mls/hr IV.SIG Q12H [facility]ALI Rx#:[id number] Flagyl 500 MG Inj 100 ML @ 100 100 / 100 200 / 200 mls/hr IV.SIG Q8H VAISHALI Rx#: [id number] Anesthesia Amount 250 / 250 Other: # Voids 4 Date of Last Bowel Movement 08/09/18 - Constitutional moderate distress, thin, cooperative - Routine HEENT Exam Head: Present: normocephalic ENT: Present: mucous membranes dry - Routine Neck Exam Present: supple - Routine Respiratory Exam Present: CTA bilaterally - Routine Cardiovascular Exam Present: S1, S2 - Routine Abdominal Exam Present: soft, normoactive bowel sounds (Bowel sounds soft generalized discomfort to light palpation), guarding (Mild) - Routine Skin Exam Present: intact, pallor - Routine Neurological Exam Present: alert (Answer simple question) - Routine Psychiatric Exam Present: normal affect <Claire Abraham - Last Filed: 08/10/18 12:38> Vital signs: Vital Signs 08/09/18 20:00 08/10/18 00:00 08/10/18 04:00 Temperature 97.8 F 98.6 F 98.0 F Pulse Rate 86 81 72 Respiratory Rate 17 17 16 Blood Pressure 107/63 107/70 110/72 Pulse Oximetry 100 97 99 08/10/18 08:00 08/10/18 12:00 08/10/18 16:00 Temperature 98.8 F 98.1 F 98.1 F Pulse Rate 80 77 75 Respiratory Rate 18 18 18 Blood Pressure 118/75 127/84 120/70 Pulse Oximetry 96 99 95 08/10/18 16:09 Temperature Pulse Rate 86 Respiratory Rate 18 Blood Pressure Pulse Oximetry Intake & Output 08/09/18 08/10/18 08/10/18 18:59 06:59 18:59 Intake Total 2650 / 2650 1800 / 1800 1000 / 1000 Balance 2650 / 2650 1800 / 1800 1000 / 1000 Intake: IV 2400 / 2400 1800 / 1800 1000 / 1000 NS + KCl 40 mEq Inj 1,000 ML @ 1900 / 1900 1400 / 1400 1000 / 1000 100 mls/hr IV.CONT .Q10H [facility]I Rx #:[id number] Cipro 400 MG/200 ML Inj 400 mg 400 / 400 200 / 200 In 200 ml @ 200 mls/hr IV.SIG Q12H [facility]ALI Rx#:[id number] Flagyl 500 MG Inj 100 ML @ 100 100 / 100 200 / 200 mls/hr IV.SIG Q8H [facility]ALI Rx#: [id number] Anesthesia Amount 250 / 250 Other: # Voids 4 Date of Last Bowel Movement 08/09/18 <Estuardo Pedroza - Last Filed: 08/10/18 18:11> Results - Labs CBC & Chem 7: 08/10/18 11:04 08/09/18 07:50 Laboratory Results - last 24 hr 08/10/18 11:04 WBC 4.6 RBC 3.15 L Hgb 9.9 L Hct 28.9 L MCV 91.8 MCH 31.5 MCHC 34.3 RDW 12.4 Plt Count 180 MPV 9.4 Neut % (Auto) 59.4 Lymph % (Auto) 16.9 [place] % (Auto) 18.5 H Eos % (Auto) 4.7 H Baso % (Auto) 0.5 Neut # (Auto) 2.8 Lymph # (Auto) 0.8 L [place] # (Auto) 0.9 Eos # (Auto) 0.2 Baso # (Auto) 0.0 WBC Differential . Differential Comment Auto diff final - Imaging Impressions Chest X-Ray 08/10/18 00:00 CONCLUSION: Possible early right middle lobe airspace consolidation. <Claire Abraham - Last Filed: 08/10/18 12:38> - Labs CBC & Chem 7: 08/10/18 11:04 08/10/18 11:04 Laboratory Results - last 24 hr 08/10/18 08/10/18 11:04 11:04 WBC 4.6 RBC 3.15 L Hgb 9.9 L Hct 28.9 L MCV 91.8 MCH 31.5 MCHC 34.3 RDW 12.4 Plt Count 180 MPV 9.4 Neut % (Auto) 59.4 Lymph % (Auto) 16.9 [place] % (Auto) 18.5 H Eos % (Auto) 4.7 H Baso % (Auto) 0.5 Neut # (Auto) 2.8 Lymph # (Auto) 0.8 L [place] # (Auto) 0.9 Eos # (Auto) 0.2 Baso # (Auto) 0.0 WBC Differential . Differential Comment Auto diff final Sodium 136 Potassium 3.6 Chloride 104 Carbon Dioxide 24.1 Anion Gap 8 BUN 2 L Creatinine 0.54 Estimated GFR Greater than 89 Random Glucose 99 Calcium 8.0 L - Imaging Impressions Chest X-Ray 08/10/18 00:00 CONCLUSION: Possible early right middle lobe airspace consolidation. <Estuardo Pedroza - Last Filed: 08/10/18 18:11> Assessment and Plan (1) Colitis Status: Acute Code(s): K52.9 - Noninfective gastroenteritis and colitis, unspecified - Plan This patient is a 52-year-old female with past medical history significant for asthma, bleeding disorder, factor V Leyden mutation, herniated disc, mitral valve prolapse and psoriasis. Surgical history significant for section. Patient presented to [facility] emergency department with report of nausea and abdominal cramping onset yesterday at 5 PM. Patient endorses that she has had nausea and vomiting with loose stools. Upon consultation, patient endorsed that stools were initially dark brown in color and then became bloody with some mucus. Patient describes her abdominal pain as constant and cramping. She also describes it as aching sharp and shooting. At this time she rates pain at 5 out of 10. Patient unsure if she had fever but does endorse chills and sweats. She describes emesis as undigested food. States last colonoscopy done in 2001 into her recollection there were no abnormal findings. Patient denies any use of tobacco or alcohol products and denies any family history of gastrointestinal disorders. CT on admission revealed inflammation from mid transverse colon to rectosigmoid portion. Our service has been consulted to evaluate patient for colitis. Colitis-likely infectious Patient endorses 1 day history of nausea with some vomiting and abdominal cramping. Patient states stools were initially dark and then became mucoid and bloody. Patient states pain was constant but is now intermittent. There are no known alleviating or aggravating factors. Unknown if patient had fever but she does endorse chills and sweats. 08/05/2018 CT abdomen and pelvis reveal the following--. Acute inflammatory process extending from the mid transverse colon to the rectosigmoid region. Small volume of free fluid. Consider ulcerative colitis. Although the pattern of distribution would be consistent with ischemic colitis the mesenteric vessels are widely patent. 08/05/2018 WBC 16.8 hemoglobin 13.4 hematocrit 41 Hemoglobin 11.2 hematocrit 33.3, LFTs within normal limits, C-reactive protein 0.29, lipase 132, lactic acid 1.5 08/06/2018 Patient endorses 3-4 episodes of dark brown mucoid bloody stool this a.m. States intermittent lower abdominal cramping -CT abdomen and pelvis findings as noted above -WBC 10.5 hemoglobin 10.5 hematocrit 31.2 platelet count 142 -Liver function within normal limits -Potassium 2.8-correction as per attending -C. difficile toxin negative -Few WBCs noted in stool -No enteric pathogens -Cryptosporidium and Giardia pending -Fecal Tarik protectant pending 08/07/2018 Colitis Patient reports light brown stool without obvious noted bleeding this a.m. Intermittent lower abdominal cramping persists-mildly improved as per patient Stool studies negative 08/08/2017 Colitis Patient reporting stools now loose and not watery; afebrile As noted in documentation, per attending fecal Tarik protectant specimen to be sent today Anemia Denies any noted bleeding however hemoglobin 8.8 noted to continue to trend downwards; will proceed with endoscopic procedures 08/10/18, S/P Egd/Colonoscopy Small hiatal hernia, Schatzki ring was found in the distal esophagus Medium sized ulcer was found in the gastric antrum; biopsies were taken Normal duodenal mucosa in the duodenal bulb and 2nd part duodenum Retroflexed views revealed no abnormalities Colonoscopy results show diffuse circumferential colitis was found at the splenic flexure and in the transverse colon; The mucosa was ulcerated, erythematous, edematous, congested and had deep ulcers; multiple biopsies were performed using cold forceps Hemoglobin 9.9, will continue to monitor, C. difficile negative, other stool studies pending Plan Diet as tolerated, encourage hydration and soft non-greasy spicy foods Biopsies pending Avoid NSAIDs PPI Bowel regimen as needed Monitor labs Supportive care, repeat colonoscopy in 1 year Patient was seen per myself and Dr. Pedroza, note was written on his behalf <Claire Abraham - Last Filed: 08/10/18 12:38> (1) Colitis Status: Acute Code(s): K52.9 - Noninfective gastroenteritis and colitis, unspecified - Attending Attestation Agree with above assessment and plan. Biopsies pending. Will follow up with you. <Estuardo Pedroza - Last Filed: 08/10/18 18:11>
[2018-08-10 12:40] LABS: Anion Gap 8 meq/L (5-15); Blood Urea Nitrogen 2 mg/dL (7-18); Carbon Dioxide 24.1 meq/L (21.0-32.0); Chloride 104 meq/L (98-107); Glomerular Filtration Rate Greater Than 89 mL/min (>89); Glucose,Random 99 mg/dL (74-106); Potassium 3.6 meq/L (3.5-5.1); Sodium 136 meq/L (136-145)
[2018-08-10] MEDS: metroNIDAZOLE 500 MG Tablet PO SCH ×2 (14:02→21:27)
[2018-08-10] MEDS ORDERED: levoFLOXacin Liq 25 MG/ML 100 ML Bottle PO SCH (17:00)
[2018-08-11] MEDS: metroNIDAZOLE 500 MG Tablet PO SCH ×3 (05:15→21:10)
[2018-08-11] MEDS: Loratadine/Pseudoephedrine 12HR Tablet PO SCH ×2 (08:46→21:11)
[2018-08-11 10:16] LABS: Anion Gap 10 meq/L (5-15); Blood Urea Nitrogen 7 mg/dL (7-18); Calcium 8.6 mg/dL (8.5-10.1); Chloride 103 meq/L (98-107); Glomerular Filtration Rate Greater Than 89 mL/min (>89); Glucose,Random 120 mg/dL (74-106); Potassium 3.1 meq/L (3.5-5.1); Sodium 138 meq/L (136-145)
--- NOTE | 2018-08-11 11:13 | P.PNGI ---
Subjective Interval history: Patient is resting in bed. Continued abdominal pain, states worse after coughing. Had a bowel movement this morning, states at 3 AM, states that it was soft and non-diarrhea. Denies any bright red blood in her stool. <Rachelle Oreilly - Last Filed: 08/11/18 11:06> Interval history: Seen and examined with [employer]ILITY AR[employer]IST, feeling better today with the pain. NO bleeding, no diarrhea. Biopsies-p. <Sahil Caballero - Last Filed: 08/11/18 15:34> Physical Exam Vital signs: Vital Signs 08/10/18 12:00 08/10/18 16:00 08/10/18 16:09 Temperature 98.1 F 98.1 F Pulse Rate 77 75 86 Respiratory Rate 18 18 18 Blood Pressure 127/84 120/70 Pulse Oximetry 99 95 08/10/18 19:57 08/10/18 19:58 08/10/18 20:00 Temperature 97.8 F Pulse Rate 80 87 Respiratory Rate 20 17 Blood Pressure 113/59 L Pulse Oximetry 100 97 08/10/18 23:55 08/11/18 00:00 08/11/18 02:49 Temperature 98.3 F 98.1 F Pulse Rate 92 H 91 H 81 Respiratory Rate 18 17 18 Blood Pressure 100/57 L 120/62 Pulse Oximetry 98 96 98 08/11/18 04:19 08/11/18 04:20 08/11/18 08:00 Temperature 98.5 F Pulse Rate 88 86 Respiratory Rate 17 18 Blood Pressure 119/61 Pulse Oximetry 97 100 08/11/18 08:18 Temperature Pulse Rate 80 Respiratory Rate 16 Blood Pressure Pulse Oximetry Intake & Output 08/10/18 08/11/18 08/11/18 18:59 06:59 18:59 Intake Total 1480 / 1480 720 / 720 Balance 1480 / 1480 720 / 720 Weight 59.5 kg Intake: IV 1000 / 1000 NS + KCl 40 mEq Inj 1,000 ML @ 1000 / 1000 100 mls/hr IV.CONT .Q10H [facility] Rx #:[id number] Oral 480 / 480 720 / 720 Other: # Voids 1 3 Date of Last Bowel Movement 08/10/18 08/10/18 # Bowel Movements 0 - Constitutional no acute distress - Routine HEENT Exam Head: Present: normocephalic, atraumatic - Routine Respiratory Exam Absent: accessory muscle use - Routine Cardiovascular Exam Present: RRR - Routine Abdominal Exam Present: soft, normoactive bowel sounds. Absent: tenderness, distended - Routine Skin Exam Present: dry, warm - Routine Neurological Exam Present: alert, oriented X3 <JaimemarieRachelle - Last Filed: 08/11/18 11:06> Vital signs: Vital Signs 08/10/18 16:00 08/10/18 16:09 08/10/18 19:57 Temperature 98.1 F Pulse Rate 75 86 80 Respiratory Rate 18 18 20 Blood Pressure 120/70 Pulse Oximetry 95 08/10/18 19:58 08/10/18 20:00 08/10/18 23:55 Temperature 97.8 F Pulse Rate 87 92 H Respiratory Rate 17 18 Blood Pressure 113/59 L Pulse Oximetry 100 97 98 08/11/18 00:00 08/11/18 02:49 08/11/18 04:19 Temperature 98.3 F 98.1 F Pulse Rate 91 H 81 88 Respiratory Rate 17 18 17 Blood Pressure 100/57 L 120/62 Pulse Oximetry 96 98 08/11/18 04:20 08/11/18 08:00 08/11/18 08:18 Temperature 98.5 F Pulse Rate 86 80 Respiratory Rate 18 16 Blood Pressure 119/61 Pulse Oximetry 97 100 08/11/18 12:00 08/11/18 12:08 Temperature 98.1 F Pulse Rate 98 H 79 Respiratory Rate 20 16 Blood Pressure 119/68 Pulse Oximetry 98 Intake & Output 08/10/18 08/11/18 08/11/18 18:59 06:59 18:59 Intake Total 1480 / 1480 720 / 720 Balance 1480 / 1480 720 / 720 Weight 59.5 kg Intake: IV 1000 / 1000 NS + KCl 40 mEq Inj 1,000 ML @ 1000 / 1000 100 mls/hr IV.CONT .Q10H [facility]I Rx #:[id number] Oral 480 / 480 720 / 720 Other: # Voids 1 3 Date of Last Bowel Movement 08/10/18 08/10/18 # Bowel Movements 0 <Sahil Caballero - Last Filed: 08/11/18 15:34> Results - Labs CBC & Chem 7: 08/10/18 11:04 08/11/18 08:56 Laboratory Results - last 24 hr 08/10/18 08/10/18 08/11/18 11:04 11:04 08:56 WBC 4.6 RBC 3.15 L Hgb 9.9 L Hct 28.9 L MCV 91.8 MCH 31.5 MCHC 34.3 RDW 12.4 Plt Count 180 MPV 9.4 Neut % (Auto) 59.4 Lymph % (Auto) 16.9 [place] % (Auto) 18.5 H Eos % (Auto) 4.7 H Baso % (Auto) 0.5 Neut # (Auto) 2.8 Lymph # (Auto) 0.8 L [place] # (Auto) 0.9 Eos # (Auto) 0.2 Baso # (Auto) 0.0 WBC Differential . Differential Comment Auto diff final Sodium 136 138 Potassium 3.6 3.1 L Chloride 104 103 Carbon Dioxide 24.1 25.0 Anion Gap 8 10 BUN 2 L 7 Creatinine 0.54 0.61 Estimated GFR Greater than 89 Greater than 89 Random Glucose 99 120 H Calcium 8.0 L 8.6 - Imaging Impressions Chest X-Ray 08/10/18 00:00 CONCLUSION: Possible early right middle lobe airspace consolidation. <Rachelle Oreilly - Last Filed: 08/11/18 11:06> - Labs CBC & Chem 7: 08/10/18 11:04 08/11/18 08:56 Laboratory Results - last 24 hr 08/11/18 08:56 Sodium 138 Potassium 3.1 L Chloride 103 Carbon Dioxide 25.0 Anion Gap 10 BUN 7 Creatinine 0.61 Estimated GFR Greater than 89 Random Glucose 120 H Calcium 8.6 <Sahil Caballero - Last Filed: 08/11/18 15:34> Assessment and Plan (1) Colitis Status: Acute Code(s): K52.9 - Noninfective gastroenteritis and colitis, unspecified - Plan Assessment Colitispatient presented with nausea, vomiting and bloody diarrhea. States that symptoms began the day of admission. Denies any chronic history of GI symptoms. Denies any family history of ulcerative colitis, Crohn's, colon cancer. She has never been seen by a child care coordinator in the past. Denies previous EGD or colonoscopy. CT abdomen/pelvis with IV contrast--> acute inflammatory process extending from the mid transverse colon to the rectosigmoid region. Small volume of free fluid. Although the pattern of distribution would be consistent with ischemic colitis the mesenteric vessels are widely patent. EGD--> small hiatal hernia. Schatzki's ring was found in the distal esophagus. Medium-sized ulcers on the gastric antrum, biopsies taken. Normal duodenal mucosa in the duodenal bulb and second part of the duodenum. Colonoscopy--> diffuse circumferential colitis is found in the splenic flexure and in the transverse colon, mucosa was ulcerated, erythematous, edematous, congested and had deep ulcers, multiple biopsies were performed C. difficile testing negative. Ova and parasite stool negative. Enteric pathogens negative. Patient does have history of factor V Leyden deficiency and reports previous DVT. Ischemic colitis is certainly a differential, however previously mentioned CT with IV contrast notes mesenteric vessels are widely patent. Therefore, do not see a need for CTA abdomen or MRA at this time. Will await EGD and colon biopsies. Continue empiric antibiotics. Plan EGD/colon biopsies pending Continue empiric antibiotics Diet as tolerated Monitor H/H Reports hematochezia has resolved Further recommendations pending biopsy results This patient has been seen and examined by myself and Dr. Caballero and this note is written on his behalf <Rachelle Oreilly - Last Filed: 08/11/18 11:06> (1) Colitis Status: Acute Code(s): K52.9 - Noninfective gastroenteritis and colitis, unspecified <Sahil Caballero - Last Filed: 08/11/18 15:34>
--- NOTE | 2018-08-11 14:39 | P.PNIM ---
Subjective Interval history: Pt still with sone loose stools but no further hematochezia. Afebrile Still with some abd cramping. Still with some congestion but this is improving Physical Exam Vital signs: Last Vital Signs Temp 98.1 F 08/11/18 12:00 Pulse 79 08/11/18 12:08 Resp 16 08/11/18 12:08 BP 119/68 08/11/18 12:00 Pulse Ox 98 08/11/18 12:00 Narrative: lying in bed post nasal drainage noted heart reg lung bilateral wheezing abd s/left side tenderness. no rebound ext no edema Results Labs CBC & Chem 7: 08/12/18 06:19 08/12/18 06:19 Imaging Chest X-Ray 08/05/18 01:00 CONCLUSION: The lungs are clear. Abdomen/Pelvis CT 08/05/18 02:39 CONCLUSION: 1. Acute inflammatory process extending from the mid transverse colon to the rectosigmoid region. Small volume of free fluid. Consider ulcerative colitis. Although the pattern of distribution would be consistent with ischemic colitis the mesenteric vessels are widely patent. Chest X-Ray 08/10/18 00:00 CONCLUSION: Possible early right middle lobe airspace consolidation. Assessment and Plan Assessment (1) Colitis: Code(s): K52.9 - Noninfective gastroenteritis and colitis, unspecified Status: Acute Plan The patient is a 52 year old female with a past medical history whish includes asthma, Factor 5 Leiden mutation, herniated cervical disc( takes ibuprofen daily for the pain), mitral valve prolapse and Psoriasis who presents to the [facility] emergency department due to nausea and abdominal cramping that began around 5 PM 08/04/18. She reports that she then developed nausea and vomiting x2 as well as having diarrhea every 10-30 minutes. She reports that the diarrhea was initially dark brown and then became bloody with mucus. The patient reports that her last meal was lunch and consisted of a tuna sandwich. She denies any sick contacts or recent antibiotic use. She reports that in the evening she began to have fevers, chills, and lightheaded sensation. She denies ever having a colonoscopy. The patient reports that the abdominal pain is present worse on th LLQ with radiation to the right side. She reports that the pain is constant and a cramping sensation with intermittent sharp jabbing pains. The patient denies having any cough, congestion, chest pain, shortness of breath or urinary symptoms. Colitis, infectious vs IBD vs. ischemic - CT Abd/Pelvis (08/05/18) - Acute inflammatory process extending from the mid transverse colon to the rectosigmoid region. Small volume of free fluid. Consider ulcerative colitis. Although the pattern of distribution would be consistent with ischemic colitis the mesenteric vessels are widely patent. - Stool for C diff, WBCs and Enteric pathogens negative. - WBC 16.8 on admission. - Continue Cipro IV BID and Flagyl 500mg IV TID and convert to po levaquin and flagyl on 08/10. - GI is following. - Stop IVF on 08/10 - Fecal Calprotectin test order was not received by the laboratory. Specimen was sent out on 08/08/18. They report the test is a send out and typically takes 3-6 days once the send out lab receives the specimen before they get any results back. So potentially we won't have these results until later next week. - EGD/colonoscopy (08/09/18) -->Small hiatal hernia, Schatzki ring was found in the distal esophagus, medium sized ulcer was found in the gastric antrum, diffuse circumferential colitis was found at the splenic flexure and in the transverse colon; The mucosa was ulcerated, erythematous, edematous, congested and had deep ulcers. - Multiple biopsies were taken from the gastric ulcer and the colonic ulcers/ inflammation which are pending. - Patient does have history of factor V Leiden deficiency and reports previous DVT. Ischemic colitis is in the differential, however CT with IV contrast notes the mesenteric vessels are widely patent. - Await EGD and colon biopsies. - Continue empiric antibiotics - Pts H/H is fairly stable - Cont. Protonix 40mg BID - She had been taking Ibuprofen daily prior to admission. Discussed that this should not be resumed following discharge. - Zofran PRN - Cont. Bentyl 20mg TID Asthma - Pt now with more sinus congestion, postnasal gtt, and wheezing. - Cipro was converted to Levaquin for better respiratory coverage. - Cont. Duonebs and Claritin-d. Change Duonebs to Q6H WA - Given Solu-Medrol 60mg BID - CXR (08/10/18) --> Possible early right middle lobe airspace consolidation. Factor 5 Leiden mutation Psoriasis Herniated cervical disc - Pt takes home patient takes ibuprofen daily - Tylenol as need for discomfort DVT prophylaxis with SCDs Progress Note: Quality VTE Deep Vein Thrombosis/Pulmonary Embolism Present on Admission: No
[2018-08-11] MEDS: levoFLOXacin 500 MG Tablet PO SCH (16:25)
[2018-08-11] MEDS ORDERED: Potassium Chloride 10 MEQ ER Capsule PO ONE (19:00)
[2018-08-11] MEDS: MethylPREDNISolone Sod Succinate Inj 125 MG/2 ML Vial IV.PUSH SCH (21:14)
[2018-08-12] MEDS: metroNIDAZOLE 500 MG Tablet PO SCH ×3 (05:29→21:21)
[2018-08-12 07:18] LABS: Baso % (Auto) 0.1 % (0.0-2.0); Hematocrit 33.3 % (35.0-46.0); Hemoglobin 11.4 gm/dL (11.6-15.3); Lymph # (Auto) 0.6 th/mm3 (1.0-4.8); Lymph % (Auto) 9.1 % (9.0-44.0); Mean Corpuscular HGB Conc 34.2 % (32.0-36.0); Mean Corpuscular Volume 90.5 fL (80.0-100.0); Mean Platelet Volume 8.5 fL (7.0-11.0); Mono # (Auto) 0.5 th/mm3 (0.0-0.9); Neut # (Auto) 5.7 th/mm3 (1.8-7.7); Neut % (Auto) 83.8 % (16.0-70.0); Platelet Count 346 th/mm3 (150-450); Red Blood Count 3.68 mil/mm3 (4.00-5.30); Red Cell Distribution Width 12.3 % (11.6-17.2); White Blood Count 6.9 th/mm3 (4.0-11.0)
[2018-08-12 07:45] LABS: Calcium 9.1 mg/dL (8.5-10.1); Carbon Dioxide 25.9 meq/L (21.0-32.0); Magnesium 2.1 mg/dL (1.5-2.5); Potassium 4.6 meq/L (3.5-5.1)
[2018-08-12] MEDS: MethylPREDNISolone Sod Succinate Inj 125 MG/2 ML Vial IV.PUSH SCH (09:13)
[2018-08-12] MEDS: Loratadine/Pseudoephedrine 12HR Tablet PO SCH ×2 (09:14→21:22)
--- NOTE | 2018-08-12 10:02 | P.PNGI ---
Subjective Interval history: Pt is resting in bed. Had abdominal pain overnight. Denies nausea and vomiting. Tolerating diet, does have pain after meals. Had small BM early this morning, no bleeding reported <Rachelle Oreilly - Last Filed: 08/12/18 09:59> Interval history: Seen and examined with [employer], doing better, biopsies still pending. Can dc home on antibiiotics with GI fu in 1 week upon dc. GI will sign off. Thank you <Sahil Caballero - Last Filed: 08/12/18 14:18> Physical Exam Vital signs: Vital Signs 08/11/18 12:00 08/11/18 12:08 08/11/18 16:00 Temperature 98.1 F 98.1 F Pulse Rate 98 H 79 95 H Respiratory Rate 20 16 18 Blood Pressure 119/68 122/70 Pulse Oximetry 98 99 08/11/18 16:27 08/11/18 20:00 08/11/18 21:30 Temperature 98.0 F Pulse Rate 70 94 H 96 H Respiratory Rate 16 18 20 Blood Pressure 122/69 Pulse Oximetry 97 08/12/18 00:00 08/12/18 04:00 08/12/18 08:00 Temperature 98.2 F 97.8 F 97.6 F Pulse Rate 91 H 79 79 Respiratory Rate 20 18 17 Blood Pressure 110/76 110/54 L 96/52 L Pulse Oximetry 95 98 96 08/12/18 08:14 Temperature Pulse Rate 70 Respiratory Rate 16 Blood Pressure Pulse Oximetry Intake & Output 08/11/18 08/12/18 08/12/18 18:59 06:59 18:59 Intake Total 120 / 120 Balance 120 / 120 Weight 58.1 kg Intake: Oral 120 / 120 Other: # Voids 5 3 Date of Last Bowel Movement 08/10/18 08/10/18 - Constitutional no acute distress - Routine HEENT Exam Head: Present: normocephalic, atraumatic - Routine Respiratory Exam Absent: accessory muscle use - Routine Cardiovascular Exam Present: RRR - Routine Abdominal Exam Present: soft, normoactive bowel sounds. Absent: tenderness, distended - Routine Skin Exam Present: dry, warm - Routine Neurological Exam Present: alert, oriented X3 <Rachelle Oreilly - Last Filed: 08/12/18 09:59> Vital signs: Vital Signs 08/11/18 16:00 08/11/18 16:27 08/11/18 20:00 Temperature 98.1 F 98.0 F Pulse Rate 95 H 70 94 H Respiratory Rate 18 16 18 Blood Pressure 122/70 122/69 Pulse Oximetry 99 97 08/11/18 21:30 08/12/18 00:00 08/12/18 04:00 Temperature 98.2 F 97.8 F Pulse Rate 96 H 91 H 79 Respiratory Rate 20 20 18 Blood Pressure 110/76 110/54 L Pulse Oximetry 95 98 08/12/18 08:00 08/12/18 08:14 08/12/18 12:00 Temperature 97.6 F 97.9 F Pulse Rate 79 70 86 Respiratory Rate 17 16 17 Blood Pressure 96/52 L 100/58 L Pulse Oximetry 96 97 08/12/18 12:36 Temperature Pulse Rate 67 Respiratory Rate 16 Blood Pressure Pulse Oximetry Intake & Output 08/11/18 08/12/18 08/12/18 18:59 06:59 18:59 Intake Total 120 / 120 Balance 120 / 120 Weight 58.1 kg Intake: Oral 120 / 120 Other: # Voids 5 3 Date of Last Bowel Movement 08/10/18 08/10/18 <Sahil Caballero - Last Filed: 08/12/18 14:18> Results - Labs CBC & Chem 7: 08/12/18 06:19 08/12/18 06:19 Laboratory Results - last 24 hr 08/11/18 08/12/18 08/12/18 08:56 06:19 06:19 WBC 6.9 RBC 3.68 L Hgb 11.4 L Hct 33.3 L MCV 90.5 MCH 31.0 MCHC 34.2 RDW 12.3 Plt Count 346 D MPV 8.5 Neut % (Auto) 83.8 H Lymph % (Auto) 9.1 Banner % (Auto) 7.0 Eos % (Auto) 0.0 Baso % (Auto) 0.1 Neut # (Auto) 5.7 Lymph # (Auto) 0.6 L Banner # (Auto) 0.5 Eos # (Auto) 0.0 Baso # (Auto) 0.0 WBC Differential . Differential Comment Auto diff final Sodium 138 138 Potassium 3.1 L 4.6 D Chloride 103 104 Carbon Dioxide 25.0 25.9 Anion Gap 10 8 BUN 7 11 Creatinine 0.61 0.72 Estimated GFR Greater than 89 85 L Random Glucose 120 H 136 H Calcium 8.6 9.1 Magnesium 2.1 <Kevin Oreillysey - Last Filed: 08/12/18 09:59> - Labs CBC & Chem 7: 08/12/18 06:19 08/12/18 06:19 Laboratory Results - last 24 hr 08/12/18 08/12/18 06:19 06:19 WBC 6.9 RBC 3.68 L Hgb 11.4 L Hct 33.3 L MCV 90.5 MCH 31.0 MCHC 34.2 RDW 12.3 Plt Count 346 D MPV 8.5 Neut % (Auto) 83.8 H Lymph % (Auto) 9.1 Banner % (Auto) 7.0 Eos % (Auto) 0.0 Baso % (Auto) 0.1 Neut # (Auto) 5.7 Lymph # (Auto) 0.6 L Banner # (Auto) 0.5 Eos # (Auto) 0.0 Baso # (Auto) 0.0 WBC Differential . Differential Comment Auto diff final Sodium 138 Potassium 4.6 D Chloride 104 Carbon Dioxide 25.9 Anion Gap 8 BUN 11 Creatinine 0.72 Estimated GFR 85 L Random Glucose 136 H Calcium 9.1 Magnesium 2.1 <Sahil Caballero - Last Filed: 08/12/18 14:18> Assessment and Plan (1) Colitis Status: Acute Code(s): K52.9 - Noninfective gastroenteritis and colitis, unspecified - Plan Assessment Colitispatient presented with nausea, vomiting and bloody diarrhea. States that symptoms began the day of admission. Denies any chronic history of GI symptoms. Denies any family history of ulcerative colitis, Crohn's, colon cancer. 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 Denies previous EGD or colonoscopy. CT abdomen/pelvis with IV contrast--> acute inflammatory process extending from the mid transverse colon to the rectosigmoid region. Small volume of free fluid. Although the pattern of distribution would be consistent with ischemic colitis the mesenteric vessels are widely patent. EGD--> small hiatal hernia. Schatzki's ring was found in the distal esophagus. Medium-sized ulcers on the gastric antrum, biopsies taken. Normal duodenal mucosa in the duodenal bulb and second part of the duodenum. Colonoscopy--> diffuse circumferential colitis is found in the splenic flexure and in the transverse colon, mucosa was ulcerated, erythematous, edematous, congested and had deep ulcers, multiple biopsies were performed C. difficile testing negative. Ova and parasite stool negative. Enteric pathogens negative. Patient does have history of factor V Leyden deficiency and reports previous DVT. Ischemic colitis is certainly a differential, however previously mentioned CT with IV contrast notes mesenteric vessels are widely patent. Therefore, do not see a need for CTA abdomen or MRA at this time. Will await EGD and colon biopsies. Continue empiric antibiotics. (08/12) Pt resting in bed. Denies nausea, vomiting. Tolerating regular diet. Had abdominal pain overnight. Small BM this morning, no obvious bleeding. If pts symptoms continue to improve and she feels OK to go home then OK to DC with GI follow up for pathology results. Would recommend discharging home on empiric abx. Plan EGD/colon biopsies pending Continue empiric antibiotics Diet as tolerated Monitor H/H OK to DC if symptoms improving and she feels OK to leave Can follow up outpatient for pathology report This patient has been seen and examined by myself and Dr. Caballero and this note is written on his behalf <Rachelle Oreilly - Last Filed: 08/12/18 09:59> (1) Colitis Status: Acute Code(s): K52.9 - Noninfective gastroenteritis and colitis, unspecified <Sahil Caballero - Last Filed: 08/12/18 14:18>
--- NOTE | 2018-08-12 13:11 | P.PNIM ---
Subjective Interval history: Pt feeling better today. She had one loose to soft BM this morning Some slight abd pain last night Wheezing has improved. She did have some productive sputum overnight. Physical Exam Vital signs: Last Vital Signs Temp 97.9 F 08/12/18 12:00 Pulse 67 08/12/18 12:36 Resp 16 08/12/18 12:36 BP 100/58 L 08/12/18 12:00 Pulse Ox 97 08/12/18 12:00 Narrative: General: NAD, AAOx3 Heart reg Lung CTA Abd +BS, soft, nontender. Ext no edema Results Labs CBC & Chem 7: 08/12/18 06:19 08/12/18 06:19 Imaging Chest X-Ray 08/05/18 01:00 CONCLUSION: The lungs are clear. Abdomen/Pelvis CT 08/05/18 02:39 CONCLUSION: 1. Acute inflammatory process extending from the mid transverse colon to the rectosigmoid region. Small volume of free fluid. Consider ulcerative colitis. Although the pattern of distribution would be consistent with ischemic colitis the mesenteric vessels are widely patent. Chest X-Ray 08/10/18 00:00 CONCLUSION: Possible early right middle lobe airspace consolidation. Assessment and Plan Assessment (1) Colitis: Code(s): K52.9 - Noninfective gastroenteritis and colitis, unspecified Status: Acute Plan The patient is a 52 year old female with a past medical history whish includes asthma, Factor 5 Leiden mutation, herniated cervical disc( takes ibuprofen daily for the pain), mitral valve prolapse and Psoriasis who presents to the [facility] emergency department due to nausea and abdominal cramping that began around 5 PM 08/04/18. She reports that she then developed nausea and vomiting x2 as well as having diarrhea every 10-30 minutes. She reports that the diarrhea was initially dark brown and then became bloody with mucus. The patient reports that her last meal was lunch and consisted of a tuna sandwich. She denies any sick contacts or recent antibiotic use. She reports that in the evening she began to have fevers, chills, and lightheaded sensation. She denies ever having a colonoscopy. The patient reports that the abdominal pain is present worse on th LLQ with radiation to the right side. She reports that the pain is constant and a cramping sensation with intermittent sharp jabbing pains. The patient denies having any cough, congestion, chest pain, shortness of breath or urinary symptoms. Colitis, infectious vs IBD vs. ischemic - CT Abd/Pelvis (08/05/18) - Acute inflammatory process extending from the mid transverse colon to the rectosigmoid region. Small volume of free fluid. Consider ulcerative colitis. Although the pattern of distribution would be consistent with ischemic colitis the mesenteric vessels are widely patent. - Stool for C diff, WBCs and Enteric pathogens negative. - WBC 16.8 on admission. - Continue Cipro IV BID and Flagyl 500mg IV TID and convert to po levaquin and Flagyl on 08/10. - GI is following. - Stop IVF on 08/10 - Fecal Calprotectin test order was not received by the laboratory. Specimen was sent out on 08/08/18. They report the test is a send out and typically takes 3-6 days once the send out lab receives the specimen before they get any results back.Results still pending. - EGD/colonoscopy (08/09/18) -->Small hiatal hernia, Schatzki ring was found in the distal esophagus, medium sized ulcer was found in the gastric antrum, diffuse circumferential colitis was found at the splenic flexure and in the transverse colon; The mucosa was ulcerated, erythematous, edematous, congested and had deep ulcers. - Multiple biopsies were taken from the gastric ulcer and the colonic ulcers/ inflammation which are pending. - Patient does have history of factor V Leiden deficiency and reports previous DVT. Ischemic colitis is in the differential, however CT with IV contrast notes the mesenteric vessels are widely patent. - Await EGD and colon biopsies. I spoke with Pathology lab today and possibly will have path results by later this afternoon. Once we have pathology we can determine plans for discharge. - Continue empiric antibiotics - Pts H/H is fairly stable - Cont. Protonix 40mg BID - She had been taking Ibuprofen daily prior to admission. Discussed that this should not be resumed following discharge. - Zofran PRN - Cont. Bentyl 20mg TID - Anticipate d/c in 1-2 days. Asthma - Pt now with more sinus congestion, postnasal gtt, and wheezing. - Cipro was converted to Levaquin for better respiratory coverage. - Cont. Duonebs and Claritin-d. Change Duonebs to Q6H WA - Change Solu-Medrol 60mg BID to Prednisone 20mg BID - CXR (08/10/18) --> Possible early right middle lobe airspace consolidation. Factor 5 Leiden mutation Psoriasis Herniated cervical disc - Pt takes home patient takes ibuprofen daily - Tylenol as need for discomfort DVT prophylaxis with SCDs Progress Note: Quality VTE Deep Vein Thrombosis/Pulmonary Embolism Present on Admission: No
[2018-08-12] MEDS: levoFLOXacin 500 MG Tablet PO SCH (16:51)
[2018-08-12] MEDS: predniSONE 20 MG Tablet PO SCH (21:21)
[2018-08-13] MEDS: metroNIDAZOLE 500 MG Tablet PO SCH (06:10)
[2018-08-13 07:22] LABS: Baso % (Auto) 0.1 % (0.0-2.0); Eos % (Auto) 0.1 % (0.0-4.0); Hematocrit 32.5 % (35.0-46.0); Hemoglobin 10.9 gm/dL (11.6-15.3); Lymph # (Auto) 0.9 th/mm3 (1.0-4.8); Lymph % (Auto) 9.8 % (9.0-44.0); Mean Corpuscular HGB Conc 33.6 % (32.0-36.0); Mean Corpuscular Hemoglobin 30.7 pg (27.0-34.0); Mean Corpuscular Volume 91.5 fL (80.0-100.0); Mean Platelet Volume 8.2 fL (7.0-11.0); Mono % (Auto) 11.1 % (0.0-8.0); Neut # (Auto) 7.1 th/mm3 (1.8-7.7); Neut % (Auto) 78.9 % (16.0-70.0); Platelet Count 399 th/mm3 (150-450); Red Blood Count 3.56 mil/mm3 (4.00-5.30); Red Cell Distribution Width 12.6 % (11.6-17.2)
[2018-08-13 07:50] LABS: Calcium 8.9 mg/dL (8.5-10.1); Carbon Dioxide 28.3 meq/L (21.0-32.0); Potassium 4.1 meq/L (3.5-5.1)
[2018-08-13] MEDS: predniSONE 20 MG Tablet PO SCH (08:10)
[2018-08-13] MEDS: Loratadine/Pseudoephedrine 12HR Tablet PO SCH (08:10)
[2018-08-13 08:17] VITALS: RESP 18
[2018-08-13 08:35] VITALS: O2SAT 100
[2018-08-13 09:27] LABS: Lymphocytes 11 % (9-44); Monocytes 4 % (0-8)
[2018-08-13 09:28] LABS: Dimorphic RBC Present; Platelet Estimate Normal (Normal); Platelet Morphology Normal (Normal); Toxic Granulation 1+
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
[2018-08-13 12:00] VITALS: BP 123/58; PULSE 77; TEMP 97
== END 2018-08-13 13:40 | disposition home or self-care (01) | DRG 386 ==
LOC: NEPC 23:29 → NEDA 08-05 04:13 → N04 08-05 12:33
PROVIDERS: ADMIT Hospitalist; ATTEND Hospitalist
PROC: COLONOS (2018-08-09 08:36)
CPT/HCPCS: 71010; 71045; 74177; 80048; 80053; 81001; 82550; 83605; 83690; 83735; 83993; 84132; 84484; 84703; 85014; 85018; 85025; 85610; 85730; 86140; 86850; 86900; 86901; 87086; 87205; 87328; 87329; 87493; 87506; 88305; 88312; 90761; 90774; 90775; 90784; 94640; 94664; 94665; 96361; 96374; 96375; 99285; C8952; C9113; J0744; J0780; J2270; J2405; J2930; J3480; J7030; J7506; J7512; Q9967